=== PATIENT | male | born 1940 | race Hispanic/Latino ===

== ENCOUNTER 2019-04-04 06:56 | Inpatient (IN) | payer MEDICARE ==
[2019-04-04 07:42] LABS: Basophils # (Auto) 0.1 K/mm3 (0.0-0.1); Basophils % (Auto) 1.3 % (0.0-1.8); Eosinophils # (Auto) 0.3 K/mm3 (0.0-0.4); Eosinophils % (Auto) 2.7 % (0.0-4.3); Hematocrit 40.6 % (35.5-45.6); Hemoglobin 13.7 gm/dl (11.8-15.2); Lymphocytes # (Auto) 1.8 K/mm3 (1.2-5.4); Lymphocytes % (Auto) 16.7 % (13.4-35.0); Mean Corpuscular HGB Conc 34 % (32-34); Mean Corpuscular Volume 93 fl (84-94); Monocytes # (Auto) 0.8 K/mm3 (0.0-0.8); Monocytes % (Auto) 7.3 % (0.0-7.3); Platelet Count 176 K/mm3 (140-440); Red Blood Count 4.37 M/mm3 (3.65-5.03); Red Cell Distribution Width 14.2 % (13.2-15.2)
[2019-04-04 08:01] LABS: BUN/Creatinine Ratio 14; Blood Urea Nitrogen 11 mg/dL (9-20); Calcium 9.5 mg/dL (8.4-10.2); Hemolysis Index 10
[2019-04-04 08:15] LABS: INR 0.96 (0.87-1.13)
--- NOTE | 2019-04-04 09:35 | Vascular Lab Report ---
DUPLEX DOPPLER LOWER EXTREMITY VEINS, BILATERAL INDICATION: Left leg swelling and pain. TECHNIQUE: Duplex doppler imaging was performed through the veins of both lower extremities using ve nous compression and other maneuvers. COMPARISON: No relevant prior imaging study available. FINDINGS: Right Common femoral vein: Positive. Right Superficial femoral vein: Positive. Right Popliteal vein: Negative. Right Calf veins: Negative. Left Common femoral vein: Positive. Left Superficial femoral vein: Positive. Left Popliteal vein: Positive. Left Calf veins: Positive. Additional findings: None.. IMPRESSION: Positive for DVT throughout the left lower extremity. Focal DVT is also identified in the right comm on femoral vein/superficial femoral vein junction. Signer Name: Taiwo Nielsen Jr, MD Signed: 04/04/2019 9:31 AM Workstation Name: [id number]
--- NOTE | 2019-04-04 09:43 | Emergency Department Report ---
HPI - General Chief Complaint: Extremity Problem,Nontraumatic Time Seen by Provider: 04/04/19 09:17 - HPI HPI: This 79-year-old male was scheduled to have some procedures today by his urologist, Dr. Almazan, for history of kidney stones. However, while in the preop area, the patient and his mentioned that he has developed some left leg swelling, redness and some pain in the groin. The procedure was postponed and the patient was sent to the emergency department. Given this history, a bilateral lower extremity venous Doppler ultrasound was ordered and a preliminary report has come back showing bilateral acute DVT. There is one in the right common femoral and saphenofemoral junction. There is also a large left lower extremity DVT from the external iliac down to the posterior tibial and peroneal veins. The patient has a past medical history of vascular dementia, diabetes, GERD, coronary artery disease with previous [place] and CABG, hypertension. ED Past Medical Hx - Past Medical History Previous Medical History?: Yes Hx Hypertension: Yes (X 4 YRS) Hx Heart Attack/AMI: Yes (2016) Hx Congestive Heart Failure: No Hx Diabetes: Yes Hx GERD: Yes Hx Headaches / Migraines: Yes Hx Kidney Stones: Yes (PAIN) Hx Dementia: Yes (VASCULAR DEMENTIA/ POOR MEMORY) Hx HIV: No - Surgical History Past Surgical History?: Yes Hx Coronary Stent: No Hx Open Heart Surgery: Yes (07/2016 TRIPLE BYPASS) - Social History Smoking Status: Current Every Day Smoker Substance Use Type: None - Medications Home Medications: Home Medications Medication Instructions Recorded Confirmed Last Taken Type Alpha Lipoic Acid 200 mg PO DAILY 03/11/19 04/04/19 04/03/19 09:00 History Aspirin 81 mg PO DAILY 03/11/19 04/04/19 03/21/19 09:00 History AtorvaSTATin [Lipitor] 20 mg PO QHS 03/11/19 04/04/19 04/02/19 20:00 History Dutasteride 25 mg PO DAILY 03/11/19 04/04/19 04/02/19 09:00 History Dutasteride [Avodart] 0.5 mg PO DAILY 03/11/19 04/04/19 04/03/19 09:00 History Ginkgo Biloba 60 mg PO BID 03/11/19 04/04/19 03/11/19 09:00 History Meclizine 1 tab PO PRN 03/11/19 04/01/19 Unknown History Memantine [Namenda] 10 mg PO BID 03/11/19 04/04/19 04/02/19 18:00 History Metoprolol Tartrate 12.5 mg PO BID 03/11/19 04/04/19 04/03/19 18:00 History Pepcid 10 mg PO BID 03/11/19 04/04/19 04/03/19 18:00 History Vitamin E 400 units PO DAILY 03/11/19 04/04/19 04/02/19 09:00 History Zoloft 100 mg PO DAILY 03/11/19 04/04/19 04/02/19 09:00 History metFORMIN 500 mg PO BID 03/11/19 04/04/19 04/03/19 18:00 History ED Review of Systems ROS: Stated complaint: LT LEG SWOLLEN AND RED Other details as noted in HPI Comment: All other systems reviewed and negative Constitutional: denies: chills, fever Eyes: denies: eye pain, vision change ENT: denies: ear pain, throat pain Respiratory: denies: cough, shortness of breath Cardiovascular: edema. denies: chest pain, palpitations Gastrointestinal: denies: abdominal pain, vomiting Genitourinary: denies: dysuria, discharge Musculoskeletal: myalgia. denies: back pain Skin: change in color. denies: rash Neurological: denies: numbness, paresthesias Physical Exam - Physical Exam Vital Signs: Vital Signs 04/04/19 07:09 Temperature 98.3 F Pulse Rate 89 Respiratory 16 Rate Blood Pressure 113/73 O2 Sat by Pulse 96 Oximetry Physical Exam: GENERAL: The patient is well-developed well-nourished. HENT: Normocephalic. Atraumatic. Patient has moist mucous membranes. EYES: Extraocular motions are intact. NECK: Supple. Trachea is midline. CHEST/LUNGS: Clear to auscultation. There is no respiratory distress noted. HEART/CARDIOVASCULAR: Regular. There is no tachycardia. There is no murmur. ABDOMEN: Abdomen is soft, nontender. Patient has normal bowel sounds. There is no abdominal distention. SKIN: There is nonpitting swelling of the left lower extremity with some mild erythema. No warmth or fluctuance. No obvious rash or lesions. NEURO: The patient is awake, alert, and cooperative. The patient has no focal neurologic deficits. Normal speech. MUSCULOSKELETAL: There is some mild tenderness to palpation along the left lower extremity. ED Course Vital Signs 04/04/19 07:09 Temperature 98.3 F Pulse Rate 89 Respiratory 16 Rate Blood Pressure 113/73 O2 Sat by Pulse 96 Oximetry - Consultations Consultation #1: The patient was seen in the emergency department by the vascular physician information tech, Dr. Amira Collier is arranging for a stat arterial Doppler to be done. He will most likely take the patient in the next hour or so for a EKOS catheter placement. The patient should be admitted to the hospitalist service. 04/04/19 10:12 Consultation #2: 04/04/19 10:31 Spoke with the admitting hospitalist, Dr Nation, who has accepted the patient for admission. ED Medical Decision Making - Lab Data Result diagrams: 04/04/19 07:30 04/04/19 07:30 - Radiology Data Radiology results: report reviewed DUPLEX DOPPLER LOWER EXTREMITY ARTERIAL, BILATERAL INDICATION: nonpalpable pedal pulses, occlusive LLE DVT. TECHNIQUE: Arterial duplex examination of both lower extremities performed using B-mode, color flow and spectral Doppler assessment. FINDINGS: RIGHT: Common Femoral Artery: PSV 86 cm/sec. Triphasic waveform. Deep femoral artery: PSV 96 cm/s. Biphasic waveform. Proximal SFA: PSV 74 cm/sec. Triphasic waveform. Mid SFA: PSV 115 cm/sec. Triphasic waveform. Distal SFA: PSV 96 cm/sec. Triphasic waveform. Popliteal artery: PSV 53 cm/sec. Triphasic waveform. Posterior tibial artery: PSV 42 cm/sec. Biphasic waveform. Anterior tibial artery: PSV 34 cm/s. Biphasic waveform. Dorsalis Pedis Artery: PSV 45 cm/sec. Biphasic waveform. LEFT: Common Femoral Artery: PSV 108 cm/sec. Triphasic waveform. Deep femoral artery: PSV 120 cm/s. Biphasic waveform. Proximal SFA: PSV 113 cm/sec. Triphasic waveform. Mid SFA: PSV 108 cm/sec. Triphasic waveform. Distal SFA: PSV 100 cm/sec. Triphasic waveform. Popliteal artery: PSV 92 cm/sec. Triphasic waveform. Posterior tibial artery: PSV 123 cm/sec. Biphasic waveform. Anterior tibial artery: PSV 58 cm/s. Biphasic waveform. Dorsalis Pedis Artery: PSV 74 cm/sec. Monophasic waveform. Additional findings: Mild diffuse atherosclerotic plaques are noted throughout both lower extremities. IMPRESSION: The bilateral lower extremities appear patent as outlined above. Monophasic flow is noted in the left dorsalis pedis artery. DUPLEX DOPPLER LOWER EXTREMITY VEINS, BILATERAL INDICATION: Left leg swelling and pain. TECHNIQUE: Duplex doppler imaging was performed through the veins of both lower extremities using venous compression and other maneuvers. COMPARISON: No relevant prior imaging study available. FINDINGS: Right Common femoral vein: Positive. Right Superficial femoral vein: Positive. Right Popliteal vein: Negative. Right Calf veins: Negative. Left Common femoral vein: Positive. Left Superficial femoral vein: Positive. Left Popliteal vein: Positive. Left Calf veins: Positive. Additional findings: None.. IMPRESSION: Positive for DVT throughout the left lower extremity. Focal DVT is also identified in the right common femoral vein/superficial femoral vein junction. - Medical Decision Making The patient had a left lower extremity venous Doppler that showed a focal right DVT in the saphenous femoral junction, and an extensive left lower extremity DVT from the external iliac down through the posterior tibial and peroneal veins. Seen by vascular surgery in the emergency department. The patient was placed on IV heparin drip and will have a Ekos catheter placed and IVC filter. Patient will be admitted to the ICU and was accepted for admission by the hospitalist service. - Differential Diagnosis DVT, venous stasis, cellulitis, CHF Critical Care Time: Yes Critical care time in (mins) excluding proc time.: 31 Critical care attestation.: If time is entered above; I have spent that time in minutes in the direct care of this critically ill patient, excluding procedure time. Critical care time was spent on this patient and doing his initial evaluation, multiple re- evaluations, ordering and interpretation of labs and imaging, discussion with vascular surgery and the hospitalist service, discussions with the patient and his family, ordering of IV anticoagulation. Critical Care Time: 31 minutes ED Disposition Clinical Impression: Acute deep vein thrombosis (DVT) of right femoral vein Acute deep vein thrombosis (DVT) of left lower extremity Qualifiers: Affected thrombotic vein of extremity: unspecified vein of extremity Qualified Code(s): I82.402 - Acute embolism and thrombosis of unspecified deep veins of l eft lower extremity Hypertension Qualifiers: Hypertension type: essential hypertension Qualified Code(s): I10 - Essential ( primary) hypertension Disposition: DC-09 OP ADMIT IP TO THIS HOSP Is pt being admited?: Yes Condition: Serious Time of Disposition: 12:04
[2019-04-04] MEDS ORDERED: HEPARIN 10,000 UNITS/10 ML IV ONE (10:07)
[2019-04-04] MEDS ORDERED: SODIUM CHLORIDE FLUSH SYRINGE 10 ML IV PRN (10:42)
[2019-04-04] MEDS ORDERED: PERCOCET 5/325 PO PRN (10:42)
[2019-04-04] MEDS ORDERED: TYLENOL PO PRN (10:42)
[2019-04-04] MEDS ORDERED: ZOFRAN IV PRN (10:42)
--- NOTE | 2019-04-04 10:42 | Consultation ---
History of Present Illness - Reason for Consult Consult date: 04/04/19 left lower extremity DVT - History of Present Illness Patient with a history of kidney stones who presented for lithotripsy today but was noted to have extensive left lower extremity swelling. The patient underwent venous duplex which demonstrates DVT extending from his iliac veins without popliteal veins in the left. Patient with no prior history of DVT. No recent exacerbating factors however, the patient is not very active. Past History Past Medical History: other (kidney stones) Social history: no significant social history Family history: no significant family history Medications and Allergies Allergies Allergy/AdvReac Type Severity Reaction Status Date / Time No Known Allergies Allergy Verified 03/11/19 17:33 Home Medications Medication Instructions Recorded Confirmed Last Taken Type Alpha Lipoic Acid 200 mg PO DAILY 03/11/19 04/04/19 04/03/19 09:00 History Aspirin 81 mg PO DAILY 03/11/19 04/04/19 03/21/19 09:00 History AtorvaSTATin [Lipitor] 20 mg PO QHS 03/11/19 04/04/19 04/02/19 20:00 History Dutasteride 25 mg PO DAILY 03/11/19 04/04/19 04/02/19 09:00 History Dutasteride [Avodart] 0.5 mg PO DAILY 03/11/19 04/04/19 04/03/19 09:00 History Ginkgo Biloba 60 mg PO BID 03/11/19 04/04/19 03/11/19 09:00 History Meclizine 1 tab PO PRN 03/11/19 04/01/19 Unknown History Memantine [Namenda] 10 mg PO BID 03/11/19 04/04/19 04/02/19 18:00 History Metoprolol Tartrate 12.5 mg PO BID 03/11/19 04/04/19 04/03/19 18:00 History Pepcid 10 mg PO BID 03/11/19 04/04/19 04/03/19 18:00 History Vitamin E 400 units PO DAILY 03/11/19 04/04/19 04/02/19 09:00 History Zoloft 100 mg PO DAILY 03/11/19 04/04/19 04/02/19 09:00 History metFORMIN 500 mg PO BID 03/11/19 04/04/19 04/03/19 18:00 History Active Meds: Active Medications Heparin Sodium/Sodium Chloride (Heparin/ 0.45% Nacl-25,000 Unit/500 Ml) 25,000 unit in 500 mls @ 27 mls/hr IV TITR KAMRON; Protocol Last Admin: 04/04/19 10:31 Dose: 1,350 units/hr, 27 mls/hr Documented by: Review of Systems All systems: negative Exam - Constitutional Vitals: Temp Pulse Resp BP Pulse Ox 98.3 F 68 16 166/82 95 04/04/19 07:09 04/04/19 09:53 04/04/19 09:53 04/04/19 09:53 04/04/19 09:53 General appearance: Present: no acute distress - EENT Eyes: Present: EOM intact ENT: hearing intact - Neck Neck: Present: supple, normal ROM - Respiratory Respiratory effort: normal - Cardiovascular Rhythm: regular - Extremities Extremities: abnormal (left leg edema and reddish discoloration from the thigh distally. His left pulses are diminished.) - Abdominal General gastrointestinal: Present: deferred Male genitourinary: Present: deferred - Rectal Rectal Exam: deferred - Psychiatric Psychiatric: appropriate mood/affect, cooperative Results - Labs CBC & Chem 7: 04/04/19 07:30 04/04/19 07:30 Labs: Abnormal lab results 04/04/19 04/04/19 04/04/19 Range/Units 07:30 07:30 07:30 Seg Neutrophils % 72.0 H (40.0-70.0) % APTT 24.0 L (24.2-36.6) Sec. Chloride 95.7 L (98-107) mmol/L Glucose 211 H (75-100) mg/dL - Imaging and Cardiology Venous US: image reviewed Assessment and Plan Patient with a history of an acute left lower extremity DVT. He'll be scheduled for placement of an EKOS catheter and IVC filter placement. Prior to his venous intervention, given the decreased pulses, the patient will undergo an arterial ultrasound as well.
[2019-04-04] MEDS ORDERED: APRESOLINE IV PRN (10:45)
[2019-04-04] MEDS ORDERED: MECLIZINE PO SCH (10:45)
[2019-04-04] MEDS ORDERED: NACL 0.9% 1000 ML 1,000 ML EKOSCLUMEN SCH (11:00)
[2019-04-04] MEDS ORDERED: NACL 0.9% 1000 ML 1,000 ML SHEATH SCH (11:00)
[2019-04-04] MEDS ORDERED: NACL 0.9% 1000 ML 1,000 ML IV SCH (11:00)
[2019-04-04] MEDS ORDERED: HEPARIN/ 0.45% NACL-25,000 UNIT/500 ML 25,000 UNIT/500 ML BAG IV SCH (11:00)
[2019-04-04] MEDS ORDERED: CATHFLO 20 MG in NACL 0.9% 500 ML 500 ML EKOSDLUMEN SCH (11:00)
[2019-04-04] MEDS ORDERED: HEPARIN/ 0.45% NACL-25,000 UNIT/500 ML 25,000 UNIT/500 ML BAG SHEATH SCH (11:00)
[2019-04-04] MEDS ORDERED: HEPARIN 10,000 UNITS/10 ML ONE (11:29)
[2019-04-04] MEDS ORDERED: NACL 0.9% 500 ML 1,500 ML ONE (11:30)
[2019-04-04] MEDS ORDERED: HEPARIN/ 0.45% NACL-25,000 UNIT/500 ML 0 UNIT/0 ML BAG ONE (11:30)
--- NOTE | 2019-04-04 11:45 | Vascular Lab Report ---
DUPLEX DOPPLER LOWER EXTREMITY ARTERIAL, BILATERAL INDICATION: nonpalpable pedal pulses, occlusive LLE DVT. TECHNIQUE: Arterial duplex examination of both lower extremities performed using B-mode, color flow and spectral Doppler assessment. FINDINGS: RIGHT: Common Femoral Artery: PSV 86 cm/sec. Triphasic waveform. Deep femoral artery: PSV 96 cm/s. Biphasic waveform. Proximal SFA: PSV 74 cm/sec. Triphasic waveform. Mid SFA: PSV 115 cm/sec. Triphasic waveform. Distal SFA: PSV 96 cm/sec. Triphasic waveform. Popliteal artery: PSV 53 cm/sec. Triphasic waveform. Posterior tibial artery: PSV 42 cm/sec. Biphasic waveform. Anterior tibial artery: PSV 34 cm/s. Biphasic waveform. Dorsalis Pedis Artery: PSV 45 cm/sec. Biphasic waveform. LEFT: Common Femoral Artery: PSV 108 cm/sec. Triphasic waveform. Deep femoral artery: PSV 120 cm/s. Biphasic waveform. Proximal SFA: PSV 113 cm/sec. Triphasic waveform. Mid SFA: PSV 108 cm/sec. Triphasic waveform. Distal SFA: PSV 100 cm/sec. Triphasic waveform. Popliteal artery: PSV 92 cm/sec. Triphasic waveform. Posterior tibial artery: PSV 123 cm/sec. Biphasic waveform. Anterior tibial artery: PSV 58 cm/s. Biphasic waveform. Dorsalis Pedis Artery: PSV 74 cm/sec. Monophasic waveform. Additional findings: Mild diffuse atherosclerotic plaques are noted throughout both lower extremities . IMPRESSION: The bilateral lower extremities appear patent as outlined above. Monophasic flow is noted in the left dorsalis pedis artery. Doppler Waveform: * Triphasic is normal. * Biphasic is abnormal if clear transition from triphasic signal along vascular tree. * Monophasic is abnormal. Signer Name: Taiwo Nielsen Jr, MD Signed: 04/04/2019 11:41 AM Workstation Name: [id number]
[2019-04-04] MEDS ORDERED: CATHFLO ONE (11:50)
[2019-04-04] MEDS ORDERED: WATER FOR INJ Sterile (PF) 10 ML ONE (11:50)
[2019-04-04] MEDS: VERSED ONE ×2 (11:56→12:50)
[2019-04-04] MEDS: SUBLIMAZE ONE ×2 (11:56→12:50)
[2019-04-04] MEDS ORDERED: HEPARIN/NS 5000 UNIT/500ML(CATH LAB) 500 ML IR ONE ×2 (11:57→12:03)
[2019-04-04] MEDS: XYLOCAINE 2% INFILTRATI ONE ×2 (11:57→12:49)
--- NOTE | 2019-04-04 11:58 | History and Physical Report ---
History of Present Illness Chief complaint: left LE swelling History of present illness: 79 year old man who was scheduled to have some procedure by his urologist, dr. Almzaan for history of kidney stones. But while he was in the preoperative area his had mentioned that he had developed some leg swelling in his left side. he had extensive edema involving his whole left leg and groin. He was in fountain of an acute DVT for which he was then sent to the ER. Past medical history Hypertension, CAD status post-mi, diabetes, GERD, MIGRAINE HEADACHES, VASCULAR DEMENTIA SURGICAL HISTORY CABG SOCIAL HISTORY CURRENT EVERYDAY SMOKER Past History Past Medical History: other (kidney stones) Social history: no significant social history Family history: no significant family history Medications and Allergies Allergies Allergy/AdvReac Type Severity Reaction Status Date / Time No Known Allergies Allergy Verified 03/11/19 17:33 Home Medications Medication Instructions Recorded Confirmed Last Taken Type Alpha Lipoic Acid 200 mg PO DAILY 03/11/19 04/05/19 04/03/19 09:00 History Aspirin 81 mg PO DAILY 03/11/19 04/05/19 04/03/19 History AtorvaSTATin [Lipitor] 20 mg PO QHS 03/11/19 04/05/19 04/03/19 History Dutasteride [Avodart] 0.5 mg PO DAILY 03/11/19 04/05/19 04/03/19 09:00 History Ginkgo Biloba 60 mg PO BID 03/11/19 04/05/19 04/03/19 History Meclizine 1 tab PO PRN 03/11/19 04/05/19 04/03/19 History Memantine [Namenda] 10 mg PO BID 03/11/19 04/05/19 04/03/19 History Metoprolol Tartrate 12.5 mg PO BID 03/11/19 04/05/19 04/03/19 18:00 History Pepcid 10 mg PO BID 03/11/19 04/05/19 04/03/19 18:00 History Vitamin E 400 units PO DAILY 03/11/19 04/05/19 04/03/19 History Zoloft 100 mg PO DAILY 03/11/19 04/05/19 04/03/19 History metFORMIN 500 mg PO BID 03/11/19 04/05/19 04/03/19 18:00 History Apixaban [Eliquis] 5 mg PO BID 30 Days tablet 04/07/19 Unknown Rx Nicotine [Habitrol] 14 mg TD QDAY #30 patch 04/07/19 Unknown Rx oxyCODONE /ACETAMINOPHEN [Percocet 1 tab PO Q6H PRN #20 tablet 04/07/19 Unknown Rx 5/325 mg] Active Meds: Active Medications Acetaminophen (Tylenol) 650 mg PO Q4H PRN PRN Reason: Pain MILD(1-3)/Fever >100.5/FERRO Aspirin (Baby Aspirin) 81 mg PO QDAY KAMRON Atorvastatin Calcium (Lipitor) 20 mg PO QHS KAMRON Famotidine (Pepcid) 10 mg PO BID KAMRON Hydralazine HCl (Apresoline) 10 mg IV Q4H PRN PRN Reason: BP >160/100 Heparin Sodium/Sodium Chloride (Heparin/ 0.45% Nacl-25,000 Unit/500 Ml) 25,000 unit in 500 mls @ 27 mls/hr IV TITR KAMRON; Protocol Last Admin: 04/04/19 10:31 Dose: 1,350 units/hr, 27 mls/hr Documented by: Alteplase, Recombinant 20 mg/ (Sodium Chloride) 500 mls @ 25 mls/hr EKOSDLUMEN DIRECT KAMRON Heparin Sodium/Sodium Chloride (Heparin/ 0.45% Nacl-25,000 Unit/500 Ml) 25,000 unit in 500 mls @ 10 mls/hr SHEATH DIRECT KAMRON; Protocol Sodium Chloride (Nacl 0.9% 1000 Ml) 1,000 mls @ 30 mls/hr IV DIRECT KAMRON Sodium Chloride (Nacl 0.9% 1000 Ml) 1,000 mls @ 30 mls/hr SHEATH DIRECT KAMRON Sodium Chloride (Nacl 0.9% 1000 Ml) 1,000 mls @ 35 mls/hr EKOSCLUMEN DIRECT KAMRON Memantine (Namenda) 10 mg PO BID KAMRON Metformin HCl (Glucophage) 500 mg PO BIDDIAB COUNTS INCLUDE 234 BEDS AT THE [facility] Metoprolol Tartrate (Lopressor) 12.5 mg PO BID COUNTS INCLUDE 234 BEDS AT THE [facility] Miscellaneous Medication (Alpha Lipoic Acid) 200 mg PO DAILY COUNTS INCLUDE 234 BEDS AT THE [facility] Miscellaneous Medication (Dutasteride [Avodart]) 0.5 mg PO DAILY COUNTS INCLUDE 234 BEDS AT THE [facility] Miscellaneous Medication (Meclizine) 1 tab PO PRN KAMRON Morphine Sulfate (Morphine) 2 mg IV Q4H PRN PRN Reason: Pain, Moderate (4-6) Ondansetron HCl (Zofran) 4 mg IV Q8H PRN PRN Reason: Nausea And Vomiting Oxycodone/Acetaminophen (Percocet 5/325) 1 tab PO Q6H PRN PRN Reason: Pain, Moderate (4-6) Sertraline HCl (Zoloft) 100 mg PO DAILY KAMRON Sodium Chloride (Sodium Chloride Flush Syringe 10 Ml) 10 ml IV BID KAMRON Sodium Chloride (Sodium Chloride Flush Syringe 10 Ml) 10 ml IV PRN PRN PRN Reason: LINE FLUSH Vitamin E (Vitamin E Cap) 400 unit PO QDAY KAMRON Review of Systems ROS unobtainable: due to mental status Exam - Constitutional Vitals: Temp Pulse Resp BP Pulse Ox 98.3 F 68 16 166/82 95 04/04/19 07:09 04/04/19 09:53 04/04/19 09:53 04/04/19 09:53 04/04/19 09:53 General appearance: Present: no acute distress, well-nourished - EENT Eyes: Present: PERRL ENT: hearing intact, clear oral mucosa - Neck Neck: Present: supple, normal ROM - Respiratory Respiratory effort: normal Respiratory: bilateral: CTA - Cardiovascular Heart Sounds: Present: S1 & S2. Absent: rub, click - Extremities Extremities: pulses symmetrical Extremity abnormal: edema (LLE) Peripheral Pulses: within normal limits - Abdominal General gastrointestinal: Present: soft, non-tender, non-distended, normal bowel sounds Male genitourinary: Present: normal - Integumentary Integumentary: Present: clear, warm, dry - Musculoskeletal Musculoskeletal: gait normal, strength equal bilaterally - Psychiatric Psychiatric: appropriate mood/affect, intact judgment & insight - Neurologic Neurologic: CNII-XII intact, moves all extremities Results - Labs CBC & Chem 7: 04/07/19 05:38 04/07/19 05:38 Labs: Laboratory Last Values WBC 10.6 K/mm3 (4.5-11.0) 04/04/19 07:30 RBC 4.37 M/mm3 (3.65-5.03) 04/04/19 07:30 Hgb 13.7 gm/dl (11.8-15.2) 04/04/19 07:30 Hct 40.6 % (35.5-45.6) 04/04/19 07:30 MCV 93 fl (84-94) 04/04/19 07:30 MCH 31 pg (28-32) 04/04/19 07:30 MCHC 34 % (32-34) 04/04/19 07:30 RDW 14.2 % (13.2-15.2) 04/04/19 07:30 Plt Count 176 K/mm3 (140-440) 04/04/19 07:30 Lymph % (Auto) 16.7 % (13.4-35.0) 04/04/19 07:30 [place] % (Auto) 7.3 % (0.0-7.3) 04/04/19 07:30 Eos % (Auto) 2.7 % (0.0-4.3) 04/04/19 07:30 Baso % (Auto) 1.3 % (0.0-1.8) 04/04/19 07:30 Lymph # 1.8 K/mm3 (1.2-5.4) 04/04/19 07:30 [place] # 0.8 K/mm3 (0.0-0.8) 04/04/19 07:30 Eos # 0.3 K/mm3 (0.0-0.4) 04/04/19 07:30 Baso # 0.1 K/mm3 (0.0-0.1) 04/04/19 07:30 Seg Neutrophils % 72.0 % (40.0-70.0) H 04/04/19 07:30 Seg Neutrophils # 7.6 K/mm3 (1.8-7.7) 04/04/19 07:30 PT 12.5 Sec. (12.2-14.9) 04/04/19 07:30 INR 0.96 (0.87-1.13) 04/04/19 07:30 APTT 24.0 Sec. (24.2-36.6) L 04/04/19 07:30 Sodium 137 mmol/L (137-145) 04/04/19 07:30 Potassium 4.6 mmol/L (3.6-5.0) 04/04/19 07:30 Chloride 95.7 mmol/L (98-107) L 04/04/19 07:30 Carbon Dioxide 28 mmol/L (22-30) 04/04/19 07:30 18 mmol/L 04/04/19 07:30 BUN 11 mg/dL (9-20) 04/04/19 07:30 0.8 mg/dL (0.8-1.5) 04/04/19 07:30 Estimated GFR > 60 ml/min 04/04/19 07:30 14 % 04/04/19 07:30 Glucose 211 mg/dL (75-100) H 04/04/19 07:30 Calcium 9.5 mg/dL (8.4-10.2) 04/04/19 07:30 Assessment and Plan Assessment and plan: 79 year old man with kidney stones who was planned for a urological procedure who was then found to have extensive left lower extremity DVT. The patient's procedure was aborted and then he was admitted to the hospital. Extensive left lower extremity DVT Placement of thrombolytic catheter was done on IVC filter was placed, vascular surgery input appreciated Continue Heparin drip Vascular dementia with acute metabolic encephalopathy Supportive care, Ativan as needed, sitter ordered in the room as patient was pulling his lines and was confused Diabetes SSI GERD pepcid CAD Continue cardiac medications Current everyday smoker Nicotine patch, smoking cessation counseling performed for 11 minutes CCT 33 mins
--- NOTE | 2019-04-04 12:25 | Operative Report ---
Operative Report Operative Report: Exam: Ultrasound and fluoroscopic guided placement of IVC filter, ultrasound and fluoroscopic guided placement of thrombolytic catheter placement Clinical indication: Patient with left lower extremity DVT extending from his left external iliac vein to the tibial veins. Date: 04/04/2019 Procedure: Following an excellent pronation of the risks, benefits and alternatives; written informed consent was obtained. The patient was brought to the radiographic suite and placed in supine position on the examination table initially. IVC filter placement: Initial ultrasound evaluation of the patient's right neck demonstrated a patent although diminutive right internal jugular vein. The patient's right neck was prepped and draped in the usual sterile fashion. 1% lidocaine was used for anesthesia. Under ultrasound guidance, a 7 centimeter 18-gauge needle was advanced into the right internal jugular vein. A 0.018 guidewire was advanced centrally under fluoroscopy. The needle was removed and a marker sheath place. The 0.018 guidewire was exchanged for a 0.035 guidewire and the micro-sheath exchanged for a 5 [place] vascular sheath. A 5 [place] vertebral catheter was then advanced over the guidewire and together the guidewire and catheter advanced into the IVC. The guidewire was advanced down the right and left common iliac veins and angiography was performed to demonstrate a patent system. The guidewire was reinserted through the vertebral catheter and the vertebral catheter exchanged for an Omni first catheter was was advanced into the distal IVC. The guidewire was removed. Contrast was injected and the level of the renal veins identified. No intraluminal thrombus in the IVC is identified. Appropriate size criteria is present. Following dilation, the IVC filter introducer sheath and trocar were advanced over the guidewire. A [place] IVC filter was advanced through the sheath and deployed to position the tip of the IVC filter at the middle aspect of the L2 tubal body. Postplacement angiography was performed which demonstrated appropriate positioning with no significant tilt. The sheath was removed and hemostasis achieved in the right neck using manual compression. A sterile dressing was applied. EKOS catheter placement: The patient was placed in prone position. The patient's left popliteal fossa was prepped and draped in usual sterile fashion. Initial ultrasound evaluation of his leg demonstrated a patent left popliteal vein. Percent lidocaine was use d for anesthesia. Under ultrasound guidance, the left popliteal vein cannulated with a 7 cm 18-gauge needle. A 0.035 guidewire was advanced centrally. The needle was removed and a [address] [place] 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 The collateral was chosen and cannulated with a 0.035 guidewire. Vertebral catheter was advanced over the guidewire and manipulated to the left common femoral vein. Contrast was injected which demonstrates thrombus extending from the external iliac vein to the common femoral vein. The catheter guidewire were manipulated into the IVC. Contrast was injected to document appropriate positioning. The guidewire was reinserted. The vertebral catheter was removed. The thrombolytics catheter was then advanced over the guidewire into position the tip of the thrombolytics catheter in the common iliac vein on the left in the distal aspect of it within the femoral vein. A 50 cm and fusion length 135 cm total length catheter was used. The guidewire was removed and the infusion wire then inserted through the thrombolytics catheter. Images were saved to document appropriate positioning. The sheath was securely fastened of skin surface using 0 silk suture. The catheter was then securely fastened of the sheath using 0 silk suture. A sterile dressing was applied. The catheter was primed with 4 mg of TPA and the sheath primed with 4000 units of heparin. The patient tolerated the procedures well. There were no immediate post procedure complications. Conscious sedation was performed under the guidance of radiologic nursing. Continuous cardiopulmonary monitoring was utilized. Impression: 1) Ultrasound guided placement of IVC filter via the right internal jugular vein approach. 2) Ultrasound and fluoroscopic guided placement of EKOS thrombolytics catheter via the left popliteal vein to extend from the distal left femoral vein to the left common iliac vein.
[2019-04-04] MEDS ORDERED: NACL 0.9% 1000 ML 1,000 ML ONE (12:58)
[2019-04-04 14:15] LABS: Basophils # (Auto) 0.1 K/mm3 (0.0-0.1); Eosinophils # (Auto) 0.3 K/mm3 (0.0-0.4); Eosinophils % (Auto) 3.2 % (0.0-4.3); Hematocrit 39.7 % (35.5-45.6); Hemoglobin 13.2 gm/dl (11.8-15.2); Lymphocytes # (Auto) 2.5 K/mm3 (1.2-5.4); Lymphocytes % (Auto) 26.7 % (13.4-35.0); Mean Corpuscular HGB Conc 33 % (32-34); Mean Corpuscular Volume 93 fl (84-94); Monocytes # (Auto) 0.7 K/mm3 (0.0-0.8); Monocytes % (Auto) 7.9 % (0.0-7.3); Platelet Count 180 K/mm3 (140-440); Red Blood Count 4.27 M/mm3 (3.65-5.03)
[2019-04-04 14:25] LABS: BUN/Creatinine Ratio 14; Blood Urea Nitrogen 10 mg/dL (9-20); Calcium 9.2 mg/dL (8.4-10.2); Hemolysis Index 7
[2019-04-04 14:28] LABS: INR 1.05 (0.87-1.13)
[2019-04-04 14:52] LABS: Partial Thromboplastin Time 78.1 Sec. (24.2-36.6)
[2019-04-04] MEDS ORDERED: ANTIVERT PO PRN (15:06)
[2019-04-04] MEDS ORDERED: ATIVAN IV ONE (18:15)
[2019-04-04] MEDS: GLUCOPHAGE PO SCH ×2 (18:22→18:28)
[2019-04-04] MEDS: MORPHINE IV PRN (20:02)
[2019-04-04] MEDS ORDERED: D50W (25GM) Syringe IV PRN (20:59)
[2019-04-04] MEDS ORDERED: NON-FORMULARY (Metformin 500 MG) PO SCH (22:00)
[2019-04-04] MEDS ORDERED: PEPCID PO SCH (22:00)
[2019-04-04] MEDS ORDERED: NON-FORMULARY (Metoprolol Tartrate 12.5 MG) PO SCH (22:00)
[2019-04-04] MEDS: LOPRESSOR PO SCH (22:07)
[2019-04-04] MEDS: NAMENDA PO SCH (22:07)
[2019-04-04] MEDS: PEPCID PO SCH (22:07)
[2019-04-04] MEDS: HABITROL TD SCH (22:08)
[2019-04-04] MEDS: SODIUM CHLORIDE FLUSH SYRINGE 10 ML IV SCH (22:08)
[2019-04-04] MEDS: HumaLOG SUB-Q SCH (22:10)
[2019-04-05] MEDS: MORPHINE IV PRN ×2 (02:33→10:30)
[2019-04-05 04:12] LABS: Basophils # (Auto) 0.1 K/mm3 (0.0-0.1); Basophils % (Auto) 1.1 % (0.0-1.8); Eosinophils # (Auto) 0.2 K/mm3 (0.0-0.4); Eosinophils % (Auto) 2.6 % (0.0-4.3); Hematocrit 37.7 % (35.5-45.6); Hemoglobin 12.7 gm/dl (11.8-15.2); Lymphocytes # (Auto) 1.7 K/mm3 (1.2-5.4); Lymphocytes % (Auto) 19.5 % (13.4-35.0); Mean Corpuscular HGB Conc 34 % (32-34); Mean Corpuscular Volume 92 fl (84-94); Monocytes # (Auto) 0.8 K/mm3 (0.0-0.8); Monocytes % (Auto) 9.3 % (0.0-7.3); Platelet Count 155 K/mm3 (140-440); Red Blood Count 4.08 M/mm3 (3.65-5.03); Red Cell Distribution Width 14.1 % (13.2-15.2)
[2019-04-05 04:39] LABS: Fibrinogen 60 mg/dl (211-480)
[2019-04-05 04:45] LABS: BUN/Creatinine Ratio 14; Blood Urea Nitrogen 10 mg/dL (9-20); Calcium 8.8 mg/dL (8.4-10.2); Hemolysis Index 3
--- NOTE | 2019-04-05 05:11 | Event Note ---
Date: 04/05/19 Contacted about oozing from right neck and fibrinogen less than 60. Instructed nursing to stop TPA and change to NS through thrombolysis catheter. Ordered 20 units of cryoprecipitate, and ordered pressure to be held at right neck until cryo transfused. Ordered CBC, PTT, PT, fibrinogen to be pulled after cryo infused.
[2019-04-05 05:41] LABS: INR 1.59 (0.87-1.13)
[2019-04-05 05:42] LABS: Partial Thromboplastin Time 45.9 Sec. (24.2-36.6)
[2019-04-05 05:49] LABS: Basophils # (Auto) 0.1 K/mm3 (0.0-0.1); Basophils % (Auto) 1.2 % (0.0-1.8); Eosinophils # (Auto) 0.3 K/mm3 (0.0-0.4); Eosinophils % (Auto) 3.4 % (0.0-4.3); Hematocrit 36.5 % (35.5-45.6); Hemoglobin 12.3 gm/dl (11.8-15.2); Lymphocytes # (Auto) 1.9 K/mm3 (1.2-5.4); Lymphocytes % (Auto) 21.9 % (13.4-35.0); Mean Corpuscular HGB Conc 34 % (32-34); Mean Corpuscular Volume 93 fl (84-94); Monocytes # (Auto) 0.8 K/mm3 (0.0-0.8); Monocytes % (Auto) 9.3 % (0.0-7.3); Platelet Count 146 K/mm3 (140-440); Red Blood Count 3.93 M/mm3 (3.65-5.03); Red Cell Distribution Width 14.2 % (13.2-15.2)
[2019-04-05] MEDS ORDERED: HEPARIN/NS 5000 UNIT/500ML(CATH LAB) 500 ML IR ONE ×2 (08:44→12:55)
[2019-04-05] MEDS ORDERED: NACL 0.9% 500 ML 500 ML ONE ×2 (09:03→12:21)
[2019-04-05] MEDS ORDERED: ALPHA LIPOIC ACID 200 MG PO SCH (10:00)
[2019-04-05] MEDS ORDERED: NON-FORMULARY (Dutasteride [Avodart] 0.5 MG) PO SCH (10:00)
[2019-04-05] MEDS ORDERED: VITAMIN E 400 UNIT PO SCH (10:00)
[2019-04-05] MEDS ORDERED: NON-FORMULARY (Aspirin 81 MG) PO SCH (10:00)
[2019-04-05] MEDS ORDERED: NON-FORMULARY (Zoloft 100 MG) PO SCH (10:00)
[2019-04-05] MEDS: XYLOCAINE 2% INFILTRATI ONE ×2 (10:17→12:35)
[2019-04-05] MEDS: HumaLOG SUB-Q SCH ×4 (10:17→22:15)
[2019-04-05] MEDS: GLUCOPHAGE PO SCH (10:21)
[2019-04-05] MEDS: HABITROL TD SCH (10:29)
[2019-04-05] MEDS: SODIUM CHLORIDE FLUSH SYRINGE 10 ML IV SCH ×2 (10:50→22:15)
[2019-04-05] MEDS: LOPRESSOR PO SCH ×2 (11:02→22:13)
[2019-04-05] MEDS: NAMENDA PO SCH ×2 (11:02→22:14)
[2019-04-05] MEDS: BABY ASPIRIN PO SCH (11:02)
[2019-04-05] MEDS: PEPCID PO SCH ×2 (11:02→22:13)
[2019-04-05] MEDS: VITAMIN E CAP PO SCH (11:03)
[2019-04-05] MEDS: ZOLOFT PO SCH (11:03)
--- NOTE | 2019-04-05 12:17 | Consultation ---
History of Present Illness Consult date: 04/05/19 History of present illness: PULMONARY/CCM CONSULT NOTE (Full dictation # [id number]) Please see dictated notes for full details Past History Past Medical History: other (kidney stones) Social history: no significant social history Family history: no significant family history Medications and Allergies Allergies Allergy/AdvReac Type Severity Reaction Status Date / Time No Known Allergies Allergy Verified 03/11/19 17:33 Home Medications Medication Instructions Recorded Confirmed Last Taken Type Alpha Lipoic Acid 200 mg PO DAILY 03/11/19 04/05/19 04/03/19 09:00 History Aspirin 81 mg PO DAILY 03/11/19 04/05/19 04/03/19 History AtorvaSTATin [Lipitor] 20 mg PO QHS 03/11/19 04/05/19 04/03/19 History Dutasteride 25 mg PO DAILY 03/11/19 04/05/19 04/03/19 History Dutasteride [Avodart] 0.5 mg PO DAILY 03/11/19 04/05/19 04/03/19 09:00 History Ginkgo Biloba 60 mg PO BID 03/11/19 04/05/19 04/03/19 History Meclizine 1 tab PO PRN 03/11/19 04/05/19 04/03/19 History Memantine [Namenda] 10 mg PO BID 03/11/19 04/05/19 04/03/19 History Metoprolol Tartrate 12.5 mg PO BID 03/11/19 04/05/19 04/03/19 18:00 History Pepcid 10 mg PO BID 03/11/19 04/05/19 04/03/19 18:00 History Vitamin E 400 units PO DAILY 03/11/19 04/05/19 04/03/19 History Zoloft 100 mg PO DAILY 03/11/19 04/05/19 04/03/19 History metFORMIN 500 mg PO BID 03/11/19 04/05/19 04/03/19 18:00 History Active Meds: Active Medications Acetaminophen (Tylenol) 650 mg PO Q4H PRN PRN Reason: Pain MILD(1-3)/Fever >100.5/FERRO Aspirin (Baby Aspirin) 81 mg PO QDAY KAMRON Last Admin: 04/05/19 11:02 Dose: Not Given Documented by: Atorvastatin Calcium (Lipitor) 20 mg PO QHS COUNT INCLUDES THE [facility] Last Admin: 04/04/19 22:07 Dose: 20 mg Documented by: Dextrose (D50w (25gm) Syringe) 50 ml IV PRN PRN PRN Reason: Hypoglycemia Famotidine (Pepcid) 10 mg PO BID COUNT INCLUDES THE [facility] Last Admin: 04/05/19 11:02 Dose: Not Given Documented by: Hydralazine HCl (Apresoline) 10 mg IV Q4H PRN PRN Reason: BP >160/100 Heparin Sodium/Sodium Chloride (Heparin/ 0.45% Nacl-25,000 Unit/500 Ml) 25,000 unit in 500 mls @ 10 mls/hr SHEATH DIRECT KAMRON; Protocol Last Admin: 04/04/19 14:00 Dose: 0.5 mls Documented by: Sodium Chloride (Nacl 0.9% 1000 Ml) 1,000 mls @ 30 mls/hr IV DIRECT KAMRON Sodium Chloride (Nacl 0.9% 1000 Ml) 1,000 mls @ 30 mls/hr SHEATH DIRECT KAMRON Last Admin: 04/04/19 14:00 Dose: 5 mls Documented by: Sodium Chloride (Nacl 0.9% 1000 Ml) 1,000 mls @ 35 mls/hr EKOSCLUMEN DIRECT KAMRON Insulin Human Lispro (Humalog) 0 unit SUB-Q ACHS KAMRON; Protocol Last Admin: 04/05/19 10:17 Dose: Not Given Documented by: Lorazepam (Ativan) 1 mg IV Q4H PRN PRN Reason: Agitation Meclizine HCl (Antivert) 12.5 mg PO Q12H PRN PRN Reason: Vertigo Memantine (Namenda) 10 mg PO BID COUNT INCLUDES THE [facility] Last Admin: 04/05/19 11:02 Dose: Not Given Documented by: Metformin HCl (Glucophage) 500 mg PO BIDDIAB COUNT INCLUDES THE [facility] Metoprolol Tartrate (Lopressor) 12.5 mg PO BID COUNT INCLUDES THE [facility] Last Admin: 04/05/19 11:02 Dose: Not Given Documented by: Miscellaneous Medication (Dutasteride [Avodart]) 0.5 mg PO DAILY COUNT INCLUDES THE [facility] Morphine Sulfate (Morphine) 2 mg IV Q4H PRN PRN Reason: Pain, Moderate (4-6) Last Admin: 04/05/19 10:30 Dose: 2 mg Documented by: Nicotine (Habitrol) 14 mg TD QDAY COUNT INCLUDES THE [facility] Last Admin: 04/05/19 10:29 Dose: 14 mg Documented by: Ondansetron HCl (Zofran) 4 mg IV Q8H PRN PRN Reason: Nausea And Vomiting Oxycodone/Acetaminophen (Percocet 5/325) 1 tab PO Q6H PRN PRN Reason: Pain, Moderate (4-6) Sertraline HCl (Zoloft) 100 mg PO DAILY COUNT INCLUDES THE [facility] Last Admin: 04/05/19 11:03 Dose: Not Given Documented by: Sodium Chloride (Sodium Chloride Flush Syringe 10 Ml) 10 ml IV BID COUNT INCLUDES THE [facility] Last Admin: 04/05/19 10:50 Dose: 10 ml Documented by: Sodium Chloride (Sodium Chloride Flush Syringe 10 Ml) 10 ml IV PRN PRN PRN Reason: LINE FLUSH Vitamin E (Vitamin E Cap) 400 unit PO QDAY COUNT INCLUDES THE [facility] Last Admin: 04/05/19 11:03 Dose: Not Given Documented by: Physical Examination Vital signs: Vital Signs Temp Pulse Resp BP Pulse Ox 98.3 F 89 16 113/73 96 04/04/19 07:09 04/04/19 07:09 04/04/19 07:09 04/04/19 07:09 04/04/19 07:09 Results - Laboratory Findings CBC and BMP: 04/06/19 04:27 04/06/19 04:27 PT/INR, D-dimer PT 18.6 Sec. (12.2-14.9) H 04/05/19 05:20 INR 1.59 (0.87-1.13) H 04/05/19 05:20 Abnormal lab findings: Abnormal Labs 04/04/19 04/04/19 04/04/19 07:30 07:30 07:30 [place] % (Auto) Seg Neutrophils % 72.0 H PT INR APTT 24.0 L Fibrinogen Heparin Anti-Xa Level Potassium Chloride 95.7 L Creatinine Glucose 211 H POC Glucose 04/04/19 04/04/19 04/04/19 13:50 13:50 13:50 [place] % (Auto) 7.9 H Seg Neutrophils % PT INR APTT 78.1 H* Fibrinogen Heparin Anti-Xa Level Potassium Chloride Creatinine 0.7 L Glucose 159 H POC Glucose 04/04/19 04/05/19 04/05/19 22:08 03:53 03:53 [place] % (Auto) 9.3 H Seg Neutrophils % PT INR APTT Fibrinogen Heparin Anti-Xa Level Potassium 3.5 L Chloride Creatinine 0.7 L Glucose 167 H POC Glucose 212 H 04/05/19 04/05/19 04/05/19 04:02 05:20 05:39 [place] % (Auto) 9.3 H Seg Neutrophils % PT 18.6 H INR 1.59 H APTT 45.9 H Fibrinogen 60 L* 61 L* Heparin Anti-Xa Level < 0.10 L Potassium Chloride Creatinine Glucose POC Glucose
[2019-04-05] MEDS ORDERED: ANCEF/STERILE WATER 2 GM/20 ML 2 GM/20 ML SYRINGE IV ONE (12:21)
[2019-04-05] MEDS: VERSED ONE ×2 (12:35→12:50)
[2019-04-05] MEDS: SUBLIMAZE ONE ×5 (12:35→13:47)
[2019-04-05] MEDS: HEPARIN 10,000 UNITS/10 ML ONE ×5 (12:38→15:30)
[2019-04-05] MEDS ORDERED: VERSED ONE ×2 (13:07→13:40)
[2019-04-05] MEDS ORDERED: DIPRIVAN 10 MG/ML IV ONE ×2 (13:39)
[2019-04-05] MEDS ORDERED: DILAUDID ONE (13:40)
[2019-04-05] MEDS ORDERED: HEPARIN/NS 5000 UNIT/500ML(CATH LAB) 1,000 ML IR ONE (13:46)
--- NOTE | 2019-04-05 14:05 | Anesthesia Consultation ---
Anesthesia Consult and Med Hx Date of service: 04/05/19 - Airway Intubation Access Assessment: Possibly Difficult (unable to perform) - Pulmonary Exam CTA: Yes - Cardiac Exam Cardiac Exam: RRR - Pre-Operative Health Status ASA Pre-Surgery Classification: ASA3, Emergency Proposed Anesthetic Plan: MAC - Pulmonary Hx Smoking: Yes (1 PPD) Hx Respiratory Symptoms: Yes (chronic cough) Hx Sleep Apnea: No (KIM PRE SCREEN HIGH RISK.) - Cardiovascular System Hx Hypertension: Yes Hx Coronary Artery Disease: Yes (s/p 3 vessel CABG 2016) Hx Heart Attack/AMI: Yes (2016) Hx Cardia Arrhythmia: No - Central Nervous System CVA: No Hx Psychiatric Problems: Yes (vascular dementia) - Gastrointestinal Hx Gastroesophageal Reflux Disease: Yes - Endocrine Hx Renal Disease: No Hx Liver Disease: No Hx Insulin Dependent Diabetes: No Hx Non-Insulin Dependent Diabetes: No Hx Thyroid Disease: No - Hematic Hx Anemia: Yes - Other Systems Hx Cancer: No - Additional Comments Anesthesia Medical History Comments: Called to oven laborer for failed RN administerred conscious sedation for patient undergoing vascular procedure. Anesthesia services requested for assistance with sedation. Per RN, patient is appropriately NPO for procedure. Attempted to call /NOK multiple times for consent however unable to reach anyone. Will proceed with MAC anesthetic for urgent revascularization procedure.
[2019-04-05] MEDS ORDERED: PROVENTIL IH PRN (15:10)
--- NOTE | 2019-04-05 15:12 | Operative Report ---
Operative Report Operative Report: EXAM: 1. Removal of the venous thrombolytic catheter over a wire. 2. Selection of the IVC 3. Venography of the IVC and left lower extremity 4. Mechanical thrombectomy of the left proximal superficial femoral vein, left common femoral vein, and left external iliac vein and common iliac vein with the 8 Fr angiojet 5. Event Planning Intern mechanical thrombectomy (7 Fr) and Trerotola mechanical thrombectomy (6 Fr) of the left common femoral vein and proximal superficial femoral vein 6. Aspiration thrombectomy of the left common femoral vein and proximal superficial femoral vein with a 8 Fr MPA guide 7. Angioplasty of the left proximal superficial femoral vein, common femoral vein, left external iliac vein and left common iliac vein with a 12 mm x 60 mm angioplasty balloon 8. Angioplasty of the left superficial femoral vein and popliteal vein with a 7 mm x 200 mm angioplasty balloon 9. Angioplasty of the left common femoral vein and external iliac vein with a 14 mm x 40 mm angioplasty balloon 10. 8 Fr Angiojet mechanical thrombectomy of the IVC 11. Intravascular ultrasound of the IVC, left common iliac vein, left external iliac vein, left common femoral vein and left proximal superficial femoral vein DATE: 04/05/19 STATISTICAL FINANCIAL ANALYST: SONAL SHERMAN MD INDICATION: Symptomatic iliofemoral deep venous thrombosis MEDICATIONS: Please see nursing report for full details. CONTRAST: Please see track repair laborer report for full details ANESTHESIA: Patient became combative during the middle of the procedure due to confusion from conscious sedation and anesthesiology was contacted for assistance. Anesthesia provided MAC. PROCEDURE: Risks, benefits, and alternatives were discussed with the family; written informed consent was obtained. 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 The left common femoral vein demonstrated occlusion and the left external iliac vein was partially occluded. The left common iliac vein was partially occluded. The IVC was selected and digital subtraction angiography demonstrated patency of the IVC. Multiple thrombectomy devices including an 8 [place] AngioJet was used to perform thrombectomy of the left common iliac vein, external iliac vein, common femoral vein, and superficial femoral vein and a mold cleaner and Trerotola device were then used to perform thrombectomy of the left common femoral vein and proximal superficial femoral vein with 8 [place] guide catheter aspiration thrombectomy of the left proximal superficial femoral vein and common femoral vein. Due to the chronic nature of the thrombus in the left common femoral vein, all these devices were required in order to achieve clot resolution. Angioplasty was performed of the left common iliac vein, external iliac vein, common femoral vein, and proximal superficial femoral vein with a 12 mm x 60 mm angioplasty balloon. Angioplasty was performed of the left superficial femoral vein and popliteal vein with a 7 mm x 200 mm angioplasty balloon. 14 mm x 40 mm angioplasty balloon was then used to perform angioplasty of the left external iliac vein and common femoral vein. Digital subtraction angiography demonstrated mild residual narrowing of the superficial femoral vein, but there was more moderate irregularity was at the proximal portion of the superficial femoral vein with the mid and more peripheral portions having less significant narrowing. The left common femoral vein was patent. Left external iliac vein and common iliac vein were patent. There was thrombus in the IVC filter. 8 [place] AngioJet was then used to perform mechanical thrombectomy of the IVC filter and IVC. Digital subtraction angiography demonstrated resolution of the IVC thrombus. Intravascular ultrasound was then used to evaluate the IVC, left common iliac vein, left external iliac vein, left common femoral vein, and proximal left superficial femoral vein. The IVC was patent. The left common iliac vein was patent without May Thurner. There was severe compression of the left external iliac vein from the external iliac artery. Left common femoral vein was mildly irregular. The left profunda femoral vein was occluded despite overnight thrombolytics. The left proximal superficial femoral vein had moderate narrowing. Due to the moderate residual narrowing of the proximal superficial femoral vein and the occlusion of the profunda femoral vein and the difficulty with proceeding further with the case due to patient's confusion requiring MAC anesthesia, I decided not to stent the left external iliac vein lesion at this time. At this point, all wires, catheters, and sheaths removed. Pressure was held until hemostasis was achieved. Patient was provided 10 mg of Eliquis. ARELIS hose were applied. FINDINGS: Please see procedure note above. IMPRESSION: 1. Successful thrombolytic catheter removal. 2. Successful thrombectomy of the left lower extremity and IVC. 3. Successful angioplasty of the left common iliac vein, external iliac vein, common femoral vein, and superficial femoral vein. 4. Successful intravascular ultrasound of the IVC, left common iliac vein, left external iliac vein, and left common femoral vein and superficial femoral vein.
--- NOTE | 2019-04-05 15:12 | Post Operative Note ---
Date of procedure: 04/05/19 Pre-op diagnosis: Left ileofemoral DVT Post-op diagnosis: same Procedure: 1. Selection of the IVC 2. Venography of the IVC and left lower extremity 3. Mechanical thrombectomy of the left proximal superficial femoral vein, left common femoral vein, and left external iliac vein and common iliac vein with the 8 Fr angiojet 4. Intervention Manager mechanical thrombectomy (7 Fr) and Trerotola mechanical thrombectomy (6 Fr) of the left common femoral vein and proximal superficial femoral vein 5. Aspiration thrombectomy of the left common femoral vein and proximal superficial femoral vein with a 8 Fr MPA guide 6. Angioplasty of the left proximal superficial femoral vein, common femoral vein, left external iliac vein and left common iliac vein with a 12 mm x 60 mm angioplasty balloon 7. Angioplasty of the left common femoral vein and external iliac vein with a 14 mm x 40 mm angioplasty balloon 8. 8 Fr Angiojet mechanical thrombectomy of the IVC 9. Intravascular ultrasound of the IVC, left common iliac vein, left external iliac vein, left common femoral vein and left proximal superficial femoral vein Estimated blood loss: other (300 mL blood loss (angiojet and aspiration thrombectomy)) Condition: stable Disposition: other ([facility])
--- NOTE | 2019-04-05 15:13 | Anesthesia Day of Surgery ---
Anesthesia Day of Surgery - Day of Surgery Patient Examined: Yes Patient H&P Reviewed: Yes Patient is NPO: Yes
[2019-04-05] MEDS ORDERED: ALUM-MAG HYDROX-SIMETH 200-200-20MG/5ML ONE (15:23)
--- NOTE | 2019-04-05 15:36 | Event Note ---
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 EBL 300 from aspiration thrombectomy and angiojet. Needs IVF to flush urine. Angiojet will cause dark tea colored urine, which is normal, and needs IVF. Starting patient on Eliquis later today (10 mg PO BID). TPA, heparin discontinued. Transfer to [facility]. Can ambulate after [address] scan will be obtained of brain given low fibrinogen, but patient was at baseline prior to initiation of case.
--- NOTE | 2019-04-05 15:46 | Post Anesthesia Evaluation ---
- Post Anesthesia Evaluation Patient Participated: No Airway Patent: Yes Stable Respiratory Function: Yes Nausea/Vomiting: No Temp > 96.8F: Yes Pain Manageable: Yes Adequeate Hydration: Yes Anesthesia Complications: No Block Receding Appropriately: Not Applicable Patient on Ventilator: No Other Comments: Patient drowsy but arousable. Diffuse wheezing improved s/p albuterol neb. SpO2 >94% on 3L NC. Patient will get CT head (hx low fibrinogen today before transfusion) per proceduralist's orders prior to transport to [facility].
--- NOTE | 2019-04-05 15:49 | Progress Note ---
Assessment and Plan Assessment and plan: 79 year old man with kidney stones who was planned for a urological procedure who was then found to have extensive left lower extremity DVT. The patient's procedure was aborted and then he was admitted to the hospital. Extensive left lower extremity DVT Placement of thrombolytic catheter was done on IVC filter was placed, vascular surgery input appreciated Continue Heparin drip, sp IVC filter Vascular dementia with acute metabolic encephalopathy Supportive care, Ativan as needed, sitter ordered in the room as patient was pulling his lines and was confused Diabetes SSI GERD pepcid CAD Continue cardiac medications Current everyday smoker Nicotine patch, smoking cessation counseling performed for 11 minutes CCT 33 mins History Interval history: Patient has been confused, but he is confused at baseline. He has no complaints of chest pain shortness of breath, fever, or vomiting Hospitalist Physical - Physical exam Narrative exam: General.: Appears well, no distress, nontoxic HEENT: Moist mucous membranes, extraocular muscles intact, no lymphadenopathy Neck: supple Cardiac: S1-S2 heard Lungs: clear to auscultation bilaterally Abdomen: soft , nontender, nondistended, bowel sounds positive Extremities: Left lower extremity edema Skin: no rash or lesions Neurologic: no gross focal deficits, Patient is demented and confused Psych: calm, and cooperative - Constitutional Vitals: Temp Pulse Resp BP Pulse Ox 98.6 F 81 18 133/68 100 04/05/19 12:00 04/05/19 15:17 04/05/19 15:17 04/05/19 11:30 04/05/19 11:30 General appearance: Present: no acute distress Results - Labs CBC & Chem 7: 04/07/19 05:38 04/07/19 05:38 Labs: Laboratory Last Values WBC 8.6 K/mm3 (4.5-11.0) 04/05/19 05:39 RBC 3.93 M/mm3 (3.65-5.03) 04/05/19 05:39 Hgb 12.3 gm/dl (11.8-15.2) 04/05/19 05:39 Hct 36.5 % (35.5-45.6) 04/05/19 05:39 MCV 93 fl (84-94) 04/05/19 05:39 MCH 31 pg (28-32) 04/05/19 05:39 MCHC 34 % (32-34) 04/05/19 05:39 RDW 14.2 % (13.2-15.2) 04/05/19 05:39 Plt Count 146 K/mm3 (140-440) 04/05/19 05:39 Lymph % (Auto) 21.9 % (13.4-35.0) 04/05/19 05:39 [place] % (Auto) 9.3 % (0.0-7.3) H 04/05/19 05:39 Eos % (Auto) 3.4 % (0.0-4.3) 04/05/19 05:39 Baso % (Auto) 1.2 % (0.0-1.8) 04/05/19 05:39 Lymph # 1.9 K/mm3 (1.2-5.4) 04/05/19 05:39 [place] # 0.8 K/mm3 (0.0-0.8) 04/05/19 05:39 Eos # 0.3 K/mm3 (0.0-0.4) 04/05/19 05:39 Baso # 0.1 K/mm3 (0.0-0.1) 04/05/19 05:39 Seg Neutrophils % 64.2 % (40.0-70.0) 04/05/19 05:39 Seg Neutrophils # 5.5 K/mm3 (1.8-7.7) 04/05/19 05:39 PT 18.6 Sec. (12.2-14.9) H 04/05/19 05:20 INR 1.59 (0.87-1.13) H 04/05/19 05:20 APTT 45.9 Sec. (24.2-36.6) H 04/05/19 05:20 233 mg/dl (211-480) 04/05/19 11:54 Heparin Anti-Xa Level < 0.10 U.I./ml (0.3-0.7) L 04/05/19 04:02 Sodium 140 mmol/L (137-145) 04/05/19 03:53 Potassium 3.5 mmol/L (3.6-5.0) L 04/05/19 03:53 Chloride 100.2 mmol/L (98-107) 04/05/19 03:53 Carbon Dioxide 27 mmol/L (22-30) 04/05/19 03:53 16 mmol/L 04/05/19 03:53 BUN 10 mg/dL (9-20) 04/05/19 03:53 0.7 mg/dL (0.8-1.5) L 04/05/19 03:53 Estimated GFR > 60 ml/min 04/05/19 03:53 14 % 04/05/19 03:53 Glucose 167 mg/dL (75-100) H 04/05/19 03:53 POC Glucose 212 (70-105) H 04/04/19 22:08 Calcium 8.8 mg/dL (8.4-10.2) 04/05/19 03:53 Blood Type O POSITIVE 04/05/19 05:00 Antibody Screen Negative 04/05/19 05:00 Active Medications - Current Medications Current Medications: Generic Name Dose Route Start Last Admin Trade Name Freq PRN Reason Stop Dose Admin Acetaminophen 650 mg 04/04/19 10:42 Tylenol PO Q4H PRN Pain MILD(1-3)/Fever >100.5/FERRO Albuterol 2.5 mg 04/05/19 15:10 04/05/19 15:26 Proventil IH 04/05/19 20:00 2.5 mg PREOP PRN Administration Wheezing Apixaban 10 mg 04/05/19 16:00 Eliquis PO 04/11/19 22:[address] [facility] Protocol Apixaban 5 mg 04/12/19 10:[address] [facility] Protocol Aspirin 81 mg 04/05/19 10:00 04/05/19 11:02 Baby Aspirin PO Not Given QDAY [facility] Atorvastatin Calcium 20 mg 04/04/19 22:00 04/04/19 22:07 Lipitor PO 20 mg QHS [facility] Administration Dextrose 50 ml 04/04/19 20:59 D50w (25gm) Syringe IV PRN PRN Hypoglycemia Famotidine 10 mg 04/04/19 22:00 04/05/19 11:02 Pepcid PO Not Given BID [facility] Hydralazine HCl 10 mg 04/04/19 10:45 Apresoline IV Q4H PRN BP >160/100 Sodium Chloride 1,000 mls @ 200 mls/hr 04/05/19 16:00 Nacl 0.9% 1000 Ml IV 04/05/19 20:[address] [facility] Insulin Human Lispro 0 unit 04/04/19 22:00 04/05/19 13:39 [facility] Protocol Lorazepam 1 mg 04/04/19 20:59 Ativan IV Q4H PRN Agitation Meclizine HCl 12.5 mg 04/04/19 15:06 Antivert PO Q12H PRN Vertigo Memantine 10 mg 04/04/19 22:00 04/05/19 11:02 Namenda PO Not Given BID [facility] Metformin HCl 500 mg 04/06/19 08:[address] [facility] Metoprolol Tartrate 12.5 mg 04/04/19 22:00 04/05/19 11:02 Lopressor PO Not Given BID [facility] Miscellaneous Medication 0.5 mg 04/05/19 10:00 Dutasteride [Avodart] PO DAILY [facility] Morphine Sulfate 2 mg 04/04/19 10:42 04/05/19 10:30 Morphine IV 2 mg Q4H PRN Administration Pain, Moderate (4-6) Nicotine 14 mg 04/04/19 21:00 04/05/19 10:29 Habitrol TD [address] [facility] Administration Ondansetron HCl 4 mg 04/04/19 10:42 Zofran IV Q8H PRN Nausea And Vomiting Oxycodone/Acetaminophen 1 tab 04/04/19 10:42 Percocet 5/325 PO Q6H PRN Pain, Moderate (4-6) Sertraline HCl 100 mg 04/05/19 10:00 04/05/19 11:03 Zoloft PO Not Given DAILY [facility] Sodium Chloride 10 ml 04/04/19 22:00 04/05/19 10:50 Sodium Chloride Flush Syringe 10 Ml IV 10 ml BID [facility] Administration Sodium Chloride 10 ml 04/04/19 10:42 Sodium Chloride Flush Syringe 10 Ml IV PRN PRN LINE FLUSH Vitamin E 400 unit 04/05/19 10:00 04/05/19 11:03 Vitamin E Cap PO Not Given QDAY [facility] Nutrition/Malnutrition Assess - Dietary Evaluation Nutrition/Malnutrition Findings: Nutrition Notes Start: 04/05/19 09:30 Freq: Status: Active Protocol: Document 04/05/19 12:21 LM (Rec: 04/05/19 12:30 LM [id number]) Nutrition Notes Need for Assessment generated from: MD Order,Education Current Diagnosis Coronary Artery Disease, Diabetes,Hypertension Other Pertinent Diagnosis Dementia, kidney stones, LLE DVT Subjective/Other Information MD consult for diet education. Unable to speak to pt at time of visit due to procedure. Nutrition Intervention Follow-Up By: 04/06/19 Additional Comments F/U for Diet education
[2019-04-05] MEDS ORDERED: NACL 0.9% 1000 ML 1,000 ML IV SCH (16:00)
[2019-04-05] MEDS ORDERED: HEPARIN/ 0.45% NACL-25,000 UNIT/500 ML 25,000 UNIT/500 ML BAG IV SCH (16:00)
[2019-04-05] MEDS ORDERED: HEPARIN/ 0.45% NACL-25,000 UNIT/500 ML 25,000 UNIT/500 ML BAG ONE (16:06)
[2019-04-05] MEDS: ELIQUIS PO SCH ×2 (16:30→22:00)
--- NOTE | 2019-04-05 16:51 | Cat Scan Report ---
CT BRAIN: 04/05/2019 INDICATION / CLINICAL INFORMATION: MAIN: dementia POST J[employer]IOR [employer] PROCEDURE [id number] . COMPARISON: None available. FINDINGS: BRAIN/INTRACRANIAL STRUCTURES: CT images of the brain were obtained. There is evidence of intravascul ar contrast, presumably related to the recent catheterization procedure. There is no definite evidence of acute abnormality. Cortical and subcortical hypoattenuation is prese nt in the high right frontal lobe, which is most consistent with chronic ischemic change. Prominent underlying diffuse cerebral atrophy is present. There is no evidence of hemorrhage or mass. There are no abnormal extra-axial fluid collections. EXTRACRANIAL STRUCTURES: Unremarkable. IMPRESSION: No definite acute abnormality. High right frontal cortical encephalomalacia. Chronic and age-related change. All CT scans at this location are performed using dose reduction to ALARA by means of automated expos ure control. Signer Name: Wisam Aguilera MD Signed: 04/05/2019 4:46 PM Workstation Name: [id number]
[2019-04-06] MEDS: ATIVAN IV PRN ×2 (04:27→21:03)
[2019-04-06 05:28] LABS: Basophils % (Auto) 0.4 % (0.0-1.8); Eosinophils # (Auto) 0.4 K/mm3 (0.0-0.4); Eosinophils % (Auto) 4.2 % (0.0-4.3); Hematocrit 34.8 % (35.5-45.6); Hemoglobin 11.8 gm/dl (11.8-15.2); Lymphocytes # (Auto) 1.5 K/mm3 (1.2-5.4); Lymphocytes % (Auto) 16.6 % (13.4-35.0); Mean Corpuscular HGB Conc 34 % (32-34); Mean Corpuscular Volume 94 fl (84-94); Monocytes # (Auto) 0.9 K/mm3 (0.0-0.8); Monocytes % (Auto) 9.5 % (0.0-7.3); Platelet Count 142 K/mm3 (140-440); Red Blood Count 3.72 M/mm3 (3.65-5.03); Red Cell Distribution Width 14.3 % (13.2-15.2)
[2019-04-06 05:40] LABS: BUN/Creatinine Ratio 17; Blood Urea Nitrogen 10 mg/dL (9-20); Calcium 8.3 mg/dL (8.4-10.2); Hemolysis Index 22
[2019-04-06] MEDS ORDERED: GLUCOPHAGE PO SCH (08:00)
[2019-04-06] MEDS: HumaLOG SUB-Q SCH ×4 (08:53→21:17)
[2019-04-06] MEDS: SODIUM CHLORIDE FLUSH SYRINGE 10 ML IV SCH ×2 (10:20→21:05)
[2019-04-06] MEDS: ZOLOFT PO SCH (12:30)
[2019-04-06] MEDS: BABY ASPIRIN PO SCH (12:30)
[2019-04-06] MEDS: PEPCID PO SCH ×2 (12:30→21:01)
[2019-04-06] MEDS: LOPRESSOR PO SCH ×2 (12:31→21:02)
[2019-04-06] MEDS: VITAMIN E CAP PO SCH (12:33)
[2019-04-06] MEDS: HABITROL TD SCH (12:33)
[2019-04-06] MEDS: ELIQUIS PO SCH ×2 (12:34→21:04)
[2019-04-06] MEDS: NAMENDA PO SCH ×2 (12:34→21:04)
--- NOTE | 2019-04-06 13:43 | Progress Note ---
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 Thrombolysis complicated by low fibrinogen requiring replacement with cryoprecipitate. CT head no head bleed. Mental status at baseline. Doing better. Legs are asymptomatic. ARELIS hose in place. Ambulate PRN. Can be transferred to floor in no issue with PT. Anticoagulation for life. 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 He was a truck mechanic. Given multiple DVT in the past, will need to be anticoagulated for life given at least 2 DVTs. Subjective Date of service: 04/06/19 Interval history: Doing well. No leg pain. Left leg feels good. No hematoma. swelling improved. Removed pressure bandage. Objective - Constitutional Vitals: Vital Signs - 12hr 04/06/19 04/06/19 04/06/19 01:40 01:50 02:00 Temperature Pulse Rate 70 74 Pulse Rate [ From Monitor] Respiratory 20 20 Rate Blood Pressure 107/65 107/65 113/58 O2 Sat by Pulse 98 97 98 Oximetry 04/06/19 04/06/19 04/06/19 02:10 02:20 02:30 Temperature Pulse Rate Pulse Rate [ From Monitor] Respiratory Rate Blood Pressure 113/58 113/58 95/58 O2 Sat by Pulse 98 98 97 Oximetry 04/06/19 04/06/19 04/06/19 02:40 02:50 03:00 Temperature Pulse Rate Pulse Rate [ From Monitor] Respiratory Rate Blood Pressure 95/58 95/58 106/57 O2 Sat by Pulse 99 99 98 Oximetry 04/06/19 04/06/19 04/06/19 03:10 03:20 03:30 Temperature Pulse Rate Pulse Rate [ From Monitor] Respiratory Rate Blood Pressure 95/58 95/58 104/55 O2 Sat by Pulse 98 98 98 Oximetry 04/06/19 04/06/19 04/06/19 03:40 03:50 03:55 Temperature Pulse Rate 62 75 Pulse Rate [ 71 From Monitor] Respiratory 17 18 18 Rate Blood Pressure 104/55 O2 Sat by Pulse 98 99 96 Oximetry 04/06/19 04/06/19 04/06/19 04:00 04:10 04:20 Temperature 97.7 F Pulse Rate 70 72 71 Pulse Rate [ From Monitor] Respiratory 22 20 15 Rate Blood Pressure 104/55 131/64 131/64 O2 Sat by Pulse 99 98 98 Oximetry 04/06/19 04/06/19 04/06/19 04:30 04:40 04:50 Temperature Pulse Rate 66 66 67 Pulse Rate [ From Monitor] Respiratory 18 17 21 Rate Blood Pressure 131/64 111/62 111/62 O2 Sat by Pulse 99 99 99 Oximetry 04/06/19 04/06/19 04/06/19 05:00 05:10 05:20 Temperature Pulse Rate 65 68 69 Pulse Rate [ From Monitor] Respiratory 18 18 20 Rate Blood Pressure 111/62 101/56 101/56 O2 Sat by Pulse 98 98 99 Oximetry 04/06/19 04/06/19 04/06/19 05:30 05:40 05:50 Temperature Pulse Rate 66 73 70 Pulse Rate [ From Monitor] Respiratory 19 22 22 Rate Blood Pressure 101/56 107/55 107/55 O2 Sat by Pulse 97 100 99 Oximetry 04/06/19 04/06/19 04/06/19 06:00 07:00 08:00 Temperature 98.4 F Pulse Rate 75 66 71 Pulse Rate [ From Monitor] Respiratory 21 19 20 Rate Blood Pressure 121/68 104/53 115/55 O2 Sat by Pulse 98 99 90 Oximetry 04/06/19 04/06/19 04/06/19 08:21 09:00 10:00 Temperature Pulse Rate 67 68 Pulse Rate [ 72 From Monitor] Respiratory 19 19 Rate Blood Pressure 108/55 103/55 O2 Sat by Pulse 92 97 94 Oximetry 04/06/19 04/06/19 04/06/19 11:00 12:00 12:01 Temperature 98 F Pulse Rate 68 74 Pulse Rate [ From Monitor] Respiratory 22 15 Rate Blood Pressure 121/62 127/66 O2 Sat by Pulse 97 95 Oximetry 04/06/19 04/06/19 12:31 13:00 Temperature Pulse Rate 76 120 H Pulse Rate [ 99 H From Monitor] Respiratory 21 Rate Blood Pressure 130/72 124/68 O2 Sat by Pulse 96 Oximetry General appearance: Present: no acute distress - EENT Eyes: EOM intact ENT: hearing intact - Respiratory Respiratory effort: normal Extremities: no ischemia, normal temperature, normal color Extremity abnormal: edema (Improved LLE), pulses diminished (LLE palpable pedal pulses, RLE nonpalpable pedal pulses) - Psychiatric Psychiatric: cooperative - Labs CBC & Chem 7: 04/06/19 04:27 04/06/19 04:27 Labs: Abnormal lab results 04/05/19 04/05/19 04/06/19 Range/Units 16:57 22:14 04:27 Hct 34.8 L (35.5-45.6) % [place] % (Auto) 9.5 H (0.0-7.3) % [place] # 0.9 H (0.0-0.8) K/mm3 Potassium (3.6-5.0) mmol/L Creatinine (0.8-1.5) mg/dL Glucose (75-100) mg/dL POC Glucose 184 H 147 H (70-105) Calcium (8.4-10.2) mg/dL 04/06/19 04/06/19 04/06/19 Range/Units 04:27 07:42 11:45 Hct (35.5-45.6) % [place] % (Auto) (0.0-7.3) % [place] # (0.0-0.8) K/mm3 Potassium 3.5 L (3.6-5.0) mmol/L Creatinine 0.6 L (0.8-1.5) mg/dL Glucose 154 H (75-100) mg/dL POC Glucose 173 H 158 H (70-105) Calcium 8.3 L (8.4-10.2) mg/dL Medications & Allergies - Medications Allergies/Adverse Reactions: Allergies No Known Allergies Allergy (Verified 03/11/19 17:33) Home Medications: Home Medications Medication Instructions Recorded Confirmed Last Taken Type Alpha Lipoic Acid 200 mg PO DAILY 03/11/19 04/05/19 04/03/19 09:00 History Aspirin 81 mg PO DAILY 03/11/19 04/05/19 04/03/19 History AtorvaSTATin [Lipitor] 20 mg PO QHS 03/11/19 04/05/19 04/03/19 History Dutasteride 25 mg PO DAILY 03/11/19 04/05/19 04/03/19 History Dutasteride [Avodart] 0.5 mg PO DAILY 03/11/19 04/05/19 04/03/19 09:00 History Ginkgo Biloba 60 mg PO BID 03/11/19 04/05/19 04/03/19 History Meclizine 1 tab PO PRN 03/11/19 04/05/19 04/03/19 History Memantine [Namenda] 10 mg PO BID 03/11/19 04/05/19 04/03/19 History Metoprolol Tartrate 12.5 mg PO BID 03/11/19 04/05/19 04/03/19 18:00 History Pepcid 10 mg PO BID 03/11/19 04/05/19 04/03/19 18:00 History Vitamin E 400 units PO DAILY 03/11/19 04/05/19 04/03/19 History Zoloft 100 mg PO DAILY 03/11/19 04/05/19 04/03/19 History metFORMIN 500 mg PO BID 03/11/19 04/05/19 04/03/19 18:00 History Active Medications: Generic Name Dose Route Start Last Admin Trade Name Ironq PRN Reason Stop Dose Admin Acetaminophen 650 mg 04/04/19 10:42 04/05/19 22:14 Tylenol PO 650 mg Q4H PRN Administration Pain MILD(1-3)/Fever >100.5/FERRO Apixaban 10 mg 04/05/19 16:00 04/06/19 12:34 Eliquis PO 04/11/19 22:01 10 mg Q12HR [facility] Administration Protocol Apixaban 5 mg 04/12/19 10:00 Eliquis PO Q12HR [facility] Protocol Aspirin 81 mg 04/05/19 10:00 04/06/19 12:30 Baby Aspirin PO 81 mg QDAY [facility] Administration Atorvastatin Calcium 20 mg 04/04/19 22:00 04/05/19 22:14 Lipitor PO 20 mg QHS [facility] Administration Dextrose 50 ml 04/04/19 20:59 D50w (25gm) Syringe IV PRN PRN Hypoglycemia Famotidine 10 mg 04/04/19 22:00 04/06/19 12:30 Pepcid PO 10 mg BID [facility] Administration Hydralazine HCl 10 mg 04/04/19 10:45 Apresoline IV Q4H PRN BP >160/100 Insulin Human Lispro 0 unit 04/04/19 22:00 04/06/19 08:53 Humalog SUB-Q 1 unit ACHS [facility] Administration Protocol Lorazepam 1 mg 04/04/19 20:59 04/06/19 04:27 Ativan IV 1 mg Q4H PRN Administration Agitation Meclizine HCl 12.5 mg 04/04/19 15:06 Antivert PO Q12H PRN Vertigo Memantine 10 mg 04/04/19 22:00 04/06/19 12:34 Namenda PO 10 mg BID [facility] Administration Metformin HCl 500 mg 04/07/19 08:00 Glucophage PO BIDDIAB [facility] Metoprolol Tartrate 12.5 mg 04/04/19 22:00 04/06/19 12:31 Lopressor PO 12.5 mg BID [facility] Administration Miscellaneous Medication 0.5 mg 04/05/19 10:00 Dutasteride [Avodart] PO DAILY [facility] Morphine Sulfate 2 mg 04/04/19 10:42 04/05/19 10:30 Morphine IV 2 mg Q4H PRN Administration Pain, Moderate (4-6) Nicotine 14 mg 04/04/19 21:00 04/06/19 12:33 Habitrol TD 14 mg QDAY [facility] Administration Ondansetron HCl 4 mg 04/04/19 10:42 Zofran IV Q8H PRN Nausea And Vomiting Oxycodone/Acetaminophen 1 tab 04/04/19 10:42 Percocet 5/325 PO Q6H PRN Pain, Moderate (4-6) Sertraline HCl 100 mg 04/05/19 10:00 04/06/19 12:30 Zoloft PO 100 mg DAILY [facility] Administration Sodium Chloride 10 ml 04/04/19 22:00 04/05/19 22:15 Sodium Chloride Flush Syringe 10 Ml IV 10 ml BID [facility] Administration Sodium Chloride 10 ml 04/04/19 10:42 Sodium Chloride Flush Syringe 10 Ml IV PRN PRN LINE FLUSH Vitamin E 400 unit 04/05/19 10:00 04/06/19 12:33 Vitamin E Cap PO 400 unit QDAY [facility] Administration
[2019-04-06] MEDS ORDERED: PROVENTIL IH PRN (15:28)
--- NOTE | 2019-04-06 15:29 | Progress Note ---
Assessment and Plan Acute VTE with left lower extremity DVT and right lower extremity DVT Acute hypoxemic respiratory failure, on 2 liters nasal cannula. History of hypertension. Coronary artery disease. Diabetes. Gastroesophageal reflux disease. History of migraine headaches. Vascular dementia. Nephrolithiasis. Tobacco use disorder - continue full anticoagulation - serial H&H acutely - watch for S&S of bleeding - supplemental oxygen as needed to keep O2 sat's > 90% - CTA chest negative for malignancy but LLL P.E. seen - continue management per vascular team - hematology evaluation per attending - continue GI prophylaxis - tobacco abstinence counseled - continue other care per attending / other consultants ... re-evaluate in am & prn Subjective Date of service: 04/06/19 Principal diagnosis: Acute VTE; CAD; Tobacco Use Disorder Interval history: Patient is seen today for: Acute VTE; CAD; Tobacco Use Disorder Seen and examined at bedside; 24hour events reviewed; nursing and respiratory care staff consulted; no adverse overnight events reported to me; resting peacefully in bed; denies acute chest pains or palpitations; no gross bleeding Objective Vital Signs - 12hr 04/06/19 04/06/19 04/06/19 03:30 03:40 03:50 Temperature Pulse Rate 62 75 Pulse Rate [ From Monitor] Respiratory 17 18 Rate Blood Pressure 104/55 104/55 O2 Sat by Pulse 98 98 99 Oximetry 04/06/19 04/06/19 04/06/19 03:55 04:00 04:10 Temperature 97.7 F Pulse Rate 70 72 Pulse Rate [ 71 From Monitor] Respiratory 18 22 20 Rate Blood Pressure 104/55 131/64 O2 Sat by Pulse 96 99 98 Oximetry 04/06/19 04/06/19 04/06/19 04:20 04:30 04:40 Temperature Pulse Rate 71 66 66 Pulse Rate [ From Monitor] Respiratory 15 18 17 Rate Blood Pressure 131/64 131/64 111/62 O2 Sat by Pulse 98 99 99 Oximetry 04/06/19 04/06/19 04/06/19 04:50 05:00 05:10 Temperature Pulse Rate 67 65 68 Pulse Rate [ From Monitor] Respiratory 21 18 18 Rate Blood Pressure 111/62 111/62 101/56 O2 Sat by Pulse 99 98 98 Oximetry 04/06/19 04/06/19 04/06/19 05:20 05:30 05:40 Temperature Pulse Rate 69 66 73 Pulse Rate [ From Monitor] Respiratory 20 19 22 Rate Blood Pressure 101/56 101/56 107/55 O2 Sat by Pulse 99 97 100 Oximetry 04/06/19 04/06/19 04/06/19 05:50 06:00 07:00 Temperature Pulse Rate 70 75 66 Pulse Rate [ From Monitor] Respiratory 22 21 19 Rate Blood Pressure 107/55 121/68 104/53 O2 Sat by Pulse 99 98 99 Oximetry 04/06/19 04/06/19 04/06/19 08:00 08:21 09:00 Temperature 98.4 F Pulse Rate 71 67 Pulse Rate [ 72 From Monitor] Respiratory 20 19 Rate Blood Pressure 115/55 108/55 O2 Sat by Pulse 90 92 97 Oximetry 04/06/19 04/06/19 04/06/19 10:00 11:00 12:00 Temperature 98 F Pulse Rate 68 68 Pulse Rate [ From Monitor] Respiratory 19 22 Rate Blood Pressure 103/55 121/62 O2 Sat by Pulse 94 97 Oximetry 04/06/19 04/06/19 04/06/19 12:01 12:31 13:00 Temperature Pulse Rate 74 76 120 H Pulse Rate [ 99 H From Monitor] Respiratory 15 21 Rate Blood Pressure 127/66 130/72 124/68 O2 Sat by Pulse 95 96 Oximetry Constitutional: no acute distress, alert, other (elderly looking CM normocephalic with mildly increased resp effort at rest) Eyes: non-icteric ENT: oropharynx moist Neck: supple Effort: mildly labored Ascultation: Bilateral: clear, diminished breath sounds Percussion: Bilateral: not dull Cardiovascular: regular rate and rhythm Gastrointestinal: normoactive bowel sounds, soft, non-tender, non-distended Integumentary: erythema (leg) Extremities: no cyanosis, pink and warm, pulses normal, no ischemia or petechiae, edema Neurologic: normal mental status, non-focal exam (grossly), pupils equal and round, CN II-XII normal, motor strength normal and Psychiatric: mood appropriate, affect normal CBC and BMP: 04/07/19 05:38 04/07/19 05:38 ABG, PT/INR, D-dimer: PT/INR, D-dimer PT 18.6 Sec. (12.2-14.9) H 04/05/19 05:20 INR 1.59 (0.87-1.13) H 04/05/19 05:20 Abnormal lab findings: Abnormal Labs 04/04/19 04/04/19 04/04/19 07:30 07:30 07:30 Hct [place] % (Auto) [place] # Seg Neutrophils % 72.0 H PT INR APTT 24.0 L Fibrinogen Heparin Anti-Xa Level Potassium Chloride 95.7 L Creatinine Glucose 211 H POC Glucose Calcium 04/04/19 04/04/19 04/04/19 13:50 13:50 13:50 Hct [place] % (Auto) 7.9 H [place] # Seg Neutrophils % PT INR APTT 78.1 H* Fibrinogen Heparin Anti-Xa Level Potassium Chloride Creatinine 0.7 L Glucose 159 H POC Glucose Calcium 04/04/19 04/05/19 04/05/19 22:08 03:53 03:53 Hct [place] % (Auto) 9.3 H [place] # Seg Neutrophils % PT INR APTT Fibrinogen Heparin Anti-Xa Level Potassium 3.5 L Chloride Creatinine 0.7 L Glucose 167 H POC Glucose 212 H Calcium 04/05/19 04/05/19 04/05/19 04:02 05:20 05:39 Hct [place] % (Auto) 9.3 H [place] # Seg Neutrophils % PT 18.6 H INR 1.59 H APTT 45.9 H Fibrinogen 60 L* 61 L* Heparin Anti-Xa Level < 0.10 L Potassium Chloride Creatinine Glucose POC Glucose Calcium 04/05/19 04/05/19 04/06/19 16:57 22:14 04:27 Hct 34.8 L [place] % (Auto) 9.5 H [place] # 0.9 H Seg Neutrophils % PT INR APTT Fibrinogen Heparin Anti-Xa Level Potassium Chloride Creatinine Glucose POC Glucose 184 H 147 H Calcium 04/06/19 04/06/19 04/06/19 04:27 07:42 11:45 Hct [place] % (Auto) [place] # Seg Neutrophils % PT INR APTT Fibrinogen Heparin Anti-Xa Level Potassium 3.5 L Chloride Creatinine 0.6 L Glucose 154 H POC Glucose 173 H 158 [address] Calcium [address] scan - chest: image reviewed (LLL filling defect) Allied health notes reviewed: nursing
--- NOTE | 2019-04-06 18:03 | Cat Scan Report ---
CTA CHEST WITH IV CONTRAST, 04/06/2019 INDICATION: Shortness of breath. TECHNIQUE: Axial CT images were obtained through the chest after injection of IV contrast. Coronal oblique 2-D reconstruction images were produced. 3 plane MIP reconstruction images were produced at an [employer] workstation. All CTs at this facility utilize dose reduction techniques including automated expos ure control, iterative reconstruction and weight based dosing when appropriate to reduce patient radi ation dose to as low as reasonable achievable. COMPARISON: No relevant prior studies are available for comparison. FINDINGS: There are segmental and subsegmental filling defects extending to the left lower lobe. No large or ce ntral pulmonary embolism is identified. The heart is mildly enlarged. Atherosclerotic vascular calcif ications are noted within the distribution of the coronary vessels and along the thoracic aorta. Eval uation of the lung parenchyma demonstrates no evidence of focal airspace consolidation or pleural eff usion. Limited imaging of the upper abdomen shows no evidence of acute abnormality. Evaluation of bony structures demonstrates no evidence of acute bony abnormality. IMPRESSION: 1. Evaluation positive for left lower lobe pulmonary embolism. 2. Mild cardiomegaly. CRITICAL RESULT: Left lower lobe pulmonary embolism Time of Discovery ([employer] LABORER/DESIGNER/CDT): 4:50 Time of Communication ([employer]ORER/DESIGNER/CDT): 4:58 Licensed Practitioner Receiving Report: Debora Salazar RN Read Back Performed: Yes. Signer Name: Martina Javier MD Signed: 04/06/2019 5:59 PM Workstation Name: [id number]
--- NOTE | 2019-04-06 18:03 | Progress Note ---
Assessment and Plan Assessment and plan: 79 year old man with kidney stones who was planned for a urological procedure who was then found to have extensive left lower extremity DVT. The patient's procedure was aborted and then he was admitted to the hospital. Extensive left lower extremity DVT Placement of thrombolytic catheter was done on IVC filter was placed, vascular surgery input appreciated Continue Heparin drip, sp IVC filter, Needs lifelong anticoagulation Vascular dementia with acute metabolic encephalopathy Supportive care, Ativan as needed, sitter ordered in the room as patient was pulling his lines and was confused Diabetes SSI GERD pepcid CAD Continue cardiac medications Current everyday smoker Nicotine patch, smoking cessation counseling performed for 11 minutes CCT 33 mins History Interval history: Patient has been confused, but he is confused at baseline. He has no complaints of chest pain shortness of breath, fever, or vomiting Hospitalist Physical - Physical exam Narrative exam: General.: Appears well, no distress, nontoxic HEENT: Moist mucous membranes, extraocular muscles intact, no lymphadenopathy Neck: supple Cardiac: S1-S2 heard Lungs: clear to auscultation bilaterally Abdomen: soft , nontender, nondistended, bowel sounds positive Extremities: Left lower extremity edema Skin: no rash or lesions Neurologic: no gross focal deficits, Patient is demented and confused Psych: calm, and cooperative - Constitutional Vitals: Temp Pulse Resp BP Pulse Ox 98.8 F 87 19 127/65 94 04/06/19 16:00 04/06/19 17:00 04/06/19 17:00 04/06/19 17:00 04/06/19 17:00 General appearance: Present: no acute distress Results - Labs CBC & Chem 7: 04/07/19 05:38 04/07/19 05:38 Labs: Laboratory Last Values WBC 8.9 K/mm3 (4.5-11.0) 04/06/19 04:27 RBC 3.72 M/mm3 (3.65-5.03) 04/06/19 04:27 Hgb 11.8 gm/dl (11.8-15.2) 04/06/19 04:27 Hct 34.8 % (35.5-45.6) L 04/06/19 04:27 MCV 94 fl (84-94) 04/06/19 04:27 MCH 32 pg (28-32) 04/06/19 04:27 MCHC 34 % (32-34) 04/06/19 04:27 RDW 14.3 % (13.2-15.2) 04/06/19 04:27 Plt Count 142 K/mm3 (140-440) 04/06/19 04:27 Lymph % (Auto) 16.6 % (13.4-35.0) 04/06/19 04:27 [place] % (Auto) 9.5 % (0.0-7.3) H 04/06/19 04:27 Eos % (Auto) 4.2 % (0.0-4.3) 04/06/19 04:27 Baso % (Auto) 0.4 % (0.0-1.8) 04/06/19 04:27 Lymph # 1.5 K/mm3 (1.2-5.4) 04/06/19 04:27 [place] # 0.9 K/mm3 (0.0-0.8) H 04/06/19 04:27 Eos # 0.4 K/mm3 (0.0-0.4) 04/06/19 04:27 Baso # 0.0 K/mm3 (0.0-0.1) 04/06/19 04:27 Seg Neutrophils % 69.3 % (40.0-70.0) 04/06/19 04:27 Seg Neutrophils # 6.2 K/mm3 (1.8-7.7) 04/06/19 04:27 PT 18.6 Sec. (12.2-14.9) H 04/05/19 05:20 INR 1.59 (0.87-1.13) H 04/05/19 05:20 APTT 45.9 Sec. (24.2-36.6) H 04/05/19 05:20 233 mg/dl (211-480) 04/05/19 11:54 Heparin Anti-Xa Level < 0.10 U.I./ml (0.3-0.7) L 04/05/19 04:02 Sodium 142 mmol/L (137-145) 04/06/19 04:27 Potassium 3.5 mmol/L (3.6-5.0) L 04/06/19 04:27 Chloride 103.8 mmol/L (98-107) 04/06/19 04:27 Carbon Dioxide 27 mmol/L (22-30) 04/06/19 04:27 15 mmol/L 04/06/19 04:27 BUN 10 mg/dL (9-20) 04/06/19 04:27 0.6 mg/dL (0.8-1.5) L 04/06/19 04:27 Estimated GFR > 60 ml/min 04/06/19 04:27 17 % 04/06/19 04:27 Glucose 154 mg/dL (75-100) H 04/06/19 04:27 POC Glucose 180 (70-105) H 04/06/19 16:23 Calcium 8.3 mg/dL (8.4-10.2) L 04/06/19 04:27 Blood Type O POSITIVE 04/05/19 05:00 Antibody Screen Negative 04/05/19 05:00 Active Medications - Current Medications Current Medications: Generic Name Dose Route Start Last Admin Trade Name Freq PRN Reason Stop Dose Admin Acetaminophen 650 mg 04/04/19 10:42 04/05/19 22:14 Tylenol PO 650 mg Q4H PRN Administration Pain MILD(1-3)/Fever >100.5/FERRO Albuterol 2.5 mg 04/06/19 15:28 Proventil IH Q4HRT PRN Shortness Of Breath Apixaban 10 mg 04/05/19 16:00 04/06/19 12:34 Eliquis PO 04/11/19 22:01 10 mg Q12HR KAMRON Administration Protocol Apixaban 5 mg 04/12/19 10:00 Eliquis PO Q12HR K[facility]RON Protocol Aspirin 81 mg 04/05/19 10:00 04/06/19 12:30 Baby Aspirin PO 81 mg QDAY KAMRON Administration Atorvastatin Calcium 20 mg 04/04/19 22:00 04/05/19 22:14 Lipitor PO 20 mg QHS KAMRON Administration Dextrose 50 ml 04/04/19 20:59 D50w (25gm) Syringe IV PRN PRN Hypoglycemia Famotidine 10 mg 04/04/19 22:00 04/06/19 12:30 Pepcid PO 10 mg BID K[facility]RON Administration Hydralazine HCl 10 mg 04/04/19 10:45 Apresoline IV Q4H PRN BP >160/100 Insulin Human Lispro 0 unit 04/04/19 22:00 04/06/19 08:53 Humalog SUB-Q 1 unit ACHS KAMRON Administration Protocol Lorazepam 1 mg 04/04/19 20:59 04/06/19 04:27 Ativan IV 1 mg Q4H PRN Administration Agitation Meclizine HCl 12.5 mg 04/04/19 15:06 Antivert PO Q12H PRN Vertigo Memantine 10 mg 04/04/19 22:00 04/06/19 12:34 Namenda PO 10 mg BID KAMRON Administration Metformin HCl 500 mg 04/07/19 08:00 Glucophage PO BIDDIAB KAMRON Metoprolol Tartrate 12.5 mg 04/04/19 22:00 04/06/19 12:31 Lopressor PO 12.5 mg BID K[facility]RON Administration Miscellaneous Medication 0.5 mg 04/05/19 10:00 Dutasteride [Avodart] PO DAILY [facility] Morphine Sulfate 2 mg 04/04/19 10:42 04/05/19 10:30 Morphine IV 2 mg Q4H PRN Administration Pain, Moderate (4-6) Nicotine 14 mg 04/04/19 21:00 04/06/19 12:33 Habitrol TD 14 mg QDAY [facility] Administration Ondansetron HCl 4 mg 04/04/19 10:42 Zofran IV Q8H PRN Nausea And Vomiting Oxycodone/Acetaminophen 1 tab 04/04/19 10:42 Percocet 5/325 PO Q6H PRN Pain, Moderate (4-6) Sertraline HCl 100 mg 04/05/19 10:00 04/06/19 12:30 Zoloft PO 100 mg DAILY KAMRON Administration Sodium Chloride 10 ml 04/04/19 22:00 04/05/19 22:15 Sodium Chloride Flush Syringe 10 Ml IV 10 ml BID KAMRON Administration Sodium Chloride 10 ml 04/04/19 10:42 Sodium Chloride Flush Syringe 10 Ml IV PRN PRN LINE FLUSH Vitamin E 400 unit 04/05/19 10:00 04/06/19 12:33 Vitamin E Cap PO 400 unit QDAY KAMRON Administration Nutrition/Malnutrition Assess - Dietary Evaluation Nutrition/Malnutrition Findings: Nutrition Notes Start: 04/05/19 09:30 Freq: Status: Active Protocol: Document 04/05/19 12:21 LM (Rec: 04/05/19 12:30 LM [email or web address]) Nutrition Notes Need for Assessment generated from: MD Order,Education Current Diagnosis Coronary Artery Disease, Diabetes,Hypertension Other Pertinent Diagnosis Dementia, kidney stones, LLE DVT Subjective/Other Information MD consult for diet education. Unable to speak to pt at time of visit due to procedure. Nutrition Intervention Follow-Up By: 04/06/19 Additional Comments F/U for Diet education
--- NOTE | 2019-04-07 01:24 | Consultation ---
PULMONARY CRITICAL CARE CONSULT CONSULTING PHYSICIAN: Dr. Henry. REASON FOR CONSULTATION: Critical care management, status post catheter-directed thrombolysis. CHIEF COMPLAINT AND HISTORY OF PRESENT ILLNESS: As follows: The patient is a 79-year-old male with past medical history significant amongst other things for a diagnosis of diabetes and coronary artery disease, who was apparently due for urological procedure today while in the preoperative area. His had mentioned he had developed new left lower extremity swelling with redness and some pain in the groin. Bilateral lower extremity Dopplers were done and it showed bilateral acute DVT. There was also a large left lower extremity DVT. It seemed like there was significant clot burden in the areas examined. The urologic procedure was abandoned and Vascular Surgery evaluation was requested. He denied any prior history of a DVT. He was scheduled for catheter directed thrombolysis with EKOS catheter as well as an IVC filter. Post-procedure ICU admission was requested for close observation. I should mention that no imaging was done of his chest as far as I can tell. When I stopped by to see him, he was resting in bed, doing better. Denied any acute chest pains. Denied any gross or streaky hemoptysis. The patient has a 10+ pack year tobacco smoking history and is described as an everyday smoker. That really is as much of the history of presentation as I have. PAST MEDICAL HISTORY: Significant for hypertension, coronary artery disease, diabetes, gastroesophageal reflux disease, history of migraines, history of nephrolithiasis and history of vascular dementia. PAST SURGICAL HISTORY: He has had a stent placement and triple bypass surgery in July 2016. MEDICATIONS: He was on at the time I stopped by to see him were reviewed. Pertinent medications include the following: Tylenol 650 mg p.o. q. 4 hours p.r.n. mild pain or fevers, baby aspirin 81 mg p.o. daily, Lipitor 20 mg p.o. at bedtime, Pepcid 10 mg p.o. b.i.d., hydralazine 10 mg IV q. 4 hours p.r.n. for systolic blood pressure greater than 160, diastolic greater than 100. He was on IV heparin via the EKOS system. Insulin via sliding scale. Ativan 1 mg IV q. 4 hours p.r.n. agitation, meclizine 12.5 mg p.o. q. 12 hours p.r.n. vertigo, Namenda 10 mg p.o. b.i.d., metformin 500 mg p.o. b.i.d., Lopressor 12.5 mg p.o. b.i.d., morphine sulfate 2 mg IV q. 4 hours p.r.n. moderate pain, nicotine 14 mg patch to the skin daily, Zofran 4 mg IV q. 8 hours p.r.n. nausea and vomiting, Percocet 5/325 mg 1 tablet p.o. q. 6 hours p.r.n. moderate pain, Zoloft 200 mg p.o. daily, vitamin E 400 units p.o. daily. ALLERGIES: No known drug allergies. DIET: Well-built gentleman. Denies acute weight loss or gain in the preceding few weeks to months. FAMILY AND SOCIAL HISTORY: Lives in the community, has a 10+ pack year tobacco smoking history. Denies illicit drug use or abuse, alcohol use or abuse. REVIEW OF SYSTEMS: No loss of consciousness. No new onset seizures. No new onset focal weakness. No gross hematochezia or melena. No gross hematuria or dysuria. No hematemesis. No hemoptysis. No palpitations. Denies heat or cold intolerance. Denies polydipsia or polyuria. Complete 13-system review of systems obtained. Pertinent positives and/or negatives as in body of history above, otherwise they are noncontributory. PHYSICAL EXAMINATION: VITAL SIGNS: At presentation, he was afebrile, temperature 98.3 degrees Fahrenheit with a pulse of 89, respiratory rate of 16, blood pressure 113/73, O2 sats were 96%, inspired oxygen concentration at that time was not recorded. When I stopped by to see him, O2 sats were 97% on 2 liters nasal cannula. GENERAL: He is an elderly looking well-developed male, normocephalic, atraumatic, talking to me in full sentences without significant respiratory distress. HEAD, EYES, EARS, NOSE AND THROAT: He is anicteric. Again, no conjunctival erythema. Oropharynx is moist. Mallampati #2 oropharynx. No gross jugular venous distention. Grossly, no palpable lymph nodes in the supraclavicular or submandibular lymph node chains. LUNGS: Auscultation of both lung zimmerman significant for inspiratory bibasilar rhonchi, no wheezing. HEART: Heart sounds 1 and 2 are heard. They were regular in rate and rhythm at the time of my evaluation without overt rubs or murmurs. ABDOMEN: Soft, full, bowel sounds are positive, nontender, no palpable hepatosplenomegaly. EXTREMITIES: Without overt digital clubbing or cyanosis. He has a left lower extremity nonpitting edema, mild erythema. Pedal pulses were palpable. NEUROLOGIC: Pupils equal, round, about 4 mm, reactive to light. Extraocular muscle movements are intact. He moves all 4 extremities spontaneously. Normal speech. SKIN: Normal turgor without overt cellulitis. He does have erythema in the area of the groin and left lower extremity pedal edema. No overt type decubitus ulcers that I can see. PSYCHIATRIC: His mood was normal and his affect was appropriate. LABORATORY DATA: From my review are as follows: Admission white cell count 10,600, hemoglobin 13.7, hematocrit 40.6, platelet count 176. No manual differential. INR 0.96. Serum sodium 137, potassium 4.6, chloride 96, bicarbonate 28, BUN 11, creatinine 0.8, glucose 211. No microbiology studies. Lower extremity Dopplers were done and as reported above. He also had a CT scan of the head and no definite acute intracranial abnormality. He did have some chronic changes. ASSESSMENT: 1. Acute venous thromboembolic disease with left lower extremity deep vein thrombosis and right lower extremity deep venous thrombosis. 2. Acute hypoxemic respiratory failure, on 2 liters nasal cannula. 3. History of hypertension. 4. Coronary artery disease. 5. Diabetes. 6. Gastroesophageal reflux disease. 7. History of migraine headaches. 8. Vascular dementia. 9. Nephrolithiasis. 10. Tobacco use disorder. PLAN: We will go ahead and wean him off oxygen, keeping O2 sats greater than or equal to about 90%. Aspiration precautions will be maintained. The utility of a CT angiogram at this point is a little equivocal. He is going to be treated with oral anticoagulation does not appear to have significant clot burden in his lungs just based on his clinical exam; however, I will discuss with the vascular team and decided that it will be of benefit. We will go ahead with quite likely a CT angiogram of the chest, especially considering his age, though it might be beneficial to do a CT of the chest as kind of like a screen for occult malignancy that may have led to the DVT and the VTE in the first case. His kidney function appears to be good. I will be discussing again with the vascular team and with the patient. I will get a chest x-ray, especially in light of the clinical exam and the tobacco smoking history. He is appropriately on GI prophylaxis, especially with him also on full anticoagulation. He will be observed in the intensive care unit with serial heparin anti-Xa assays. Flu and pneumonia vaccination will be addressed per protocol. Thank you very much for the consult Dr. Henry. We will follow along. We will make further recommendations as picture progresses/becomes clearer. JOB# [id number] DAVE/TOM TIERNEY
[2019-04-07 05:53] LABS: Basophils # (Auto) 0.1 K/mm3 (0.0-0.1); Basophils % (Auto) 1.2 % (0.0-1.8); Eosinophils # (Auto) 0.4 K/mm3 (0.0-0.4); Eosinophils % (Auto) 4.2 % (0.0-4.3); Hematocrit 36.3 % (35.5-45.6); Hemoglobin 12.2 gm/dl (11.8-15.2); Lymphocytes # (Auto) 1.4 K/mm3 (1.2-5.4); Lymphocytes % (Auto) 13.5 % (13.4-35.0); Mean Corpuscular HGB Conc 34 % (32-34); Mean Corpuscular Volume 93 fl (84-94); Monocytes # (Auto) 0.8 K/mm3 (0.0-0.8); Monocytes % (Auto) 7.8 % (0.0-7.3); Platelet Count 184 K/mm3 (140-440)
[2019-04-07 06:05] LABS: BUN/Creatinine Ratio 13; Blood Urea Nitrogen 8 mg/dL (9-20); Calcium 8.7 mg/dL (8.4-10.2); Hemolysis Index 45
[2019-04-07] MEDS ORDERED: GLUCOPHAGE PO SCH (08:00)
--- NOTE | 2019-04-07 08:03 | Progress Note ---
Hospitalist Physical - Constitutional Vitals: Temp Pulse Resp BP Pulse Ox 98.1 F 81 22 164/78 97 04/07/19 04:00 04/07/19 06:00 04/07/19 06:00 04/07/19 06:00 04/07/19 06:00 General appearance: Present: no acute distress Results - Labs CBC & Chem 7: 04/07/19 05:38 04/07/19 05:38 Labs: Laboratory Last Values WBC 10.3 K/mm3 (4.5-11.0) 04/07/19 05:38 RBC 3.90 M/mm3 (3.65-5.03) 04/07/19 05:38 Hgb 12.2 gm/dl (11.8-15.2) 04/07/19 05:38 Hct 36.3 % (35.5-45.6) 04/07/19 05:38 MCV 93 fl (84-94) 04/07/19 05:38 MCH 31 pg (28-32) 04/07/19 05:38 MCHC 34 % (32-34) 04/07/19 05:38 RDW 14.0 % (13.2-15.2) 04/07/19 05:38 Plt Count 184 K/mm3 (140-440) 04/07/19 05:38 Lymph % (Auto) 13.5 % (13.4-35.0) 04/07/19 05:38 [place] % (Auto) 7.8 % (0.0-7.3) H 04/07/19 05:38 Eos % (Auto) 4.2 % (0.0-4.3) 04/07/19 05:38 Baso % (Auto) 1.2 % (0.0-1.8) 04/07/19 05:38 Lymph # 1.4 K/mm3 (1.2-5.4) 04/07/19 05:38 [place] # 0.8 K/mm3 (0.0-0.8) 04/07/19 05:38 Eos # 0.4 K/mm3 (0.0-0.4) 04/07/19 05:38 Baso # 0.1 K/mm3 (0.0-0.1) 04/07/19 05:38 Seg Neutrophils % 73.3 % (40.0-70.0) H 04/07/19 05:38 Seg Neutrophils # 7.6 K/mm3 (1.8-7.7) 04/07/19 05:38 PT 18.6 Sec. (12.2-14.9) H 04/05/19 05:20 INR 1.59 (0.87-1.13) H 04/05/19 05:20 APTT 45.9 Sec. (24.2-36.6) H 04/05/19 05:20 233 mg/dl (211-480) 04/05/19 11:54 Heparin Anti-Xa Level < 0.10 U.I./ml (0.3-0.7) L 04/05/19 04:02 Sodium 139 mmol/L (137-145) 04/07/19 05:38 Potassium 3.7 mmol/L (3.6-5.0) 04/07/19 05:38 Chloride 99.7 mmol/L (98-107) 04/07/19 05:38 Carbon Dioxide 27 mmol/L (22-30) 04/07/19 05:38 16 mmol/L 04/07/19 05:38 BUN 8 mg/dL (9-20) L 04/07/19 05:38 0.6 mg/dL (0.8-1.5) L 04/07/19 05:38 Estimated GFR > 60 ml/min 04/07/19 05:38 13 % 04/07/19 05:38 Glucose 165 mg/dL (75-100) H 04/07/19 05:38 POC Glucose 134 (70-105) H 04/06/19 21:17 Calcium 8.7 mg/dL (8.4-10.2) 04/07/19 05:38 Blood Type O POSITIVE 04/05/19 05:00 Antibody Screen Negative 04/05/19 05:00 Active Medications - Current Medications Current Medications: Generic Name Dose Route Start Last Admin Trade Name Freq PRN Reason Stop Dose Admin Acetaminophen 650 mg 04/04/19 10:42 04/05/19 22:14 Tylenol PO 650 mg Q4H PRN Administration Pain MILD(1-3)/Fever >100.5/FERRO Albuterol 2.5 mg 04/06/19 15:28 Proventil IH Q4HRT PRN Shortness Of Breath Apixaban 10 mg 04/05/19 16:00 04/06/19 21:04 Eliquis PO 04/11/19 22:01 10 mg Q12HR KAMRON Administration Protocol Apixaban 5 mg 04/12/19 10:00 Eliquis PO Q12HR KAMRON Protocol Aspirin 81 mg 04/05/19 10:00 04/06/19 12:30 Baby Aspirin PO 81 mg QDAY KAMRON Administration Atorvastatin Calcium 20 mg 04/04/19 22:00 04/06/19 21:01 Lipitor PO 20 mg QHS KAMRON Administration Dextrose 50 ml 04/04/19 20:59 D50w (25gm) Syringe IV PRN PRN Hypoglycemia Famotidine 10 mg 04/04/19 22:00 04/06/19 21:01 Pepcid PO 10 mg BID KAMRON Administration Hydralazine HCl 10 mg 04/04/19 10:45 04/07/19 02:10 Apresoline IV 10 mg Q4H PRN Administration BP >160/100 Insulin Human Lispro 0 unit 04/04/19 22:00 04/06/19 21:17 Humalog SUB-Q Not Given ACHS [facility] Protocol Lorazepam 1 mg 04/04/19 20:59 04/06/19 21:03 Ativan IV 1 mg Q4H PRN Administration Agitation Meclizine HCl 12.5 mg 04/04/19 15:06 Antivert PO Q12H PRN Vertigo Memantine 10 mg 04/04/19 22:00 04/06/19 21:04 Namenda PO 10 mg BID K[facility]RON Administration Metformin HCl 500 mg 04/07/19 08:00 Glucophage PO BIDDIAB [facility] Metoprolol Tartrate 12.5 mg 04/04/19 22:00 04/06/19 21:02 Lopressor PO Not Given BID [facility] Miscellaneous Medication 0.5 mg 04/05/19 10:00 Dutasteride [Avodart] PO DAILY [facility] Morphine Sulfate 2 mg 04/04/19 10:42 04/05/19 10:30 Morphine IV 2 mg Q4H PRN Administration Pain, Moderate (4-6) Nicotine 14 mg 04/04/19 21:00 04/06/19 12:33 Habitrol TD 14 mg QDAY KAMRON Administration Ondansetron HCl 4 mg 04/04/19 10:42 Zofran IV Q8H PRN Nausea And Vomiting Oxycodone/Acetaminophen 1 tab 04/04/19 10:42 Percocet 5/325 PO Q6H PRN Pain, Moderate (4-6) Sertraline HCl 100 mg 04/05/19 10:00 04/06/19 12:30 Zoloft PO 100 mg DAILY [facility] Administration Sodium Chloride 10 ml 04/04/19 22:00 04/06/19 21:05 Sodium Chloride Flush Syringe 10 Ml IV 10 ml BID K[facility] Administration Sodium Chloride 10 ml 04/04/19 10:42 Sodium Chloride Flush Syringe 10 Ml IV PRN PRN LINE FLUSH Vitamin E 400 unit 04/05/19 10:00 04/06/19 12:33 Vitamin E Cap PO 400 unit QDAY [facility] Administration Nutrition/Malnutrition Assess - Dietary Evaluation Nutrition/Malnutrition Findings: Nutrition Notes Start: 04/05/19 09:30 Freq: Status: Active Protocol: Document 04/05/19 12:21 LM (Rec: 04/05/19 12:30 LM [email or web address]) Nutrition Notes Need for Assessment generated from: MD Order,Education Current Diagnosis Coronary Artery Disease, Diabetes,Hypertension Other Pertinent Diagnosis Dementia, kidney stones, LLE DVT Subjective/Other Information MD consult for diet education. Unable to speak to pt at time of visit due to procedure. Nutrition Intervention Follow-Up By: 04/06/19 Additional Comments F/U for Diet education
[2019-04-07] MEDS: HumaLOG SUB-Q SCH ×2 (08:30→11:43)
[2019-04-07] MEDS: VITAMIN E CAP PO SCH (09:37)
[2019-04-07] MEDS: ZOLOFT PO SCH (09:38)
[2019-04-07] MEDS: NAMENDA PO SCH (09:38)
[2019-04-07] MEDS: HABITROL TD SCH (09:38)
[2019-04-07] MEDS: PEPCID PO SCH (09:39)
[2019-04-07] MEDS: BABY ASPIRIN PO SCH (09:39)
[2019-04-07] MEDS: ELIQUIS PO SCH (09:39)
[2019-04-07] MEDS: LOPRESSOR PO SCH (09:40)
[2019-04-07] MEDS: SODIUM CHLORIDE FLUSH SYRINGE 10 ML IV SCH (11:44)
--- NOTE | 2019-04-07 13:11 | Discharge Summary ---
Providers - Providers Date of Admission: 04/04/19 12:24 Attending physician: LISETH DOS SANTOS MD 04/04/19 10:10 Consult to Physician [CONS] Routine Comment: Consulting Provider: SONAL BISWAS Physician Instructions: Reason For Exam: B/L DVT 04/04/19 10:42 Consult to Physician [CONS] Routine Comment: Consulting Provider: LEW BE Physician Instructions: Reason For Exam: icu care 04/04/19 21:00 Consult to Dietitian/Nutrition [CONS] Routine Physician Instructions: Reason For Exam: Reason for Consult: Diet education 04/06/19 13:42 Physical Therapy Evaluation and Treat [CONS] Routine Comment: Reason For Exam: LLE DVT, need to ambulate 04/06/19 13:44 Consult to Case Management [CONS] Routine Services Needed at Discharge: Other Notified:: yes Was contact made?: Yes If yes, spoke with:: Rina Time called:: 08:42 Comment:: make appt with ROSALIND ([phone]) with Dr. Gibbs in 2 weeks [facility] Condition: Serious Hospital course: 79 year old man with kidney stones who was planned for a urological procedure who was then found to have extensive left lower extremity DVT. The patient's procedure was aborted and then he was admitted to the hospital. Extensive left lower extremity DVT Placement of thrombolytic catheter was done on IVC filter was placed, vascular surgery input appreciated Continue Heparin drip, sp IVC filter, Needs lifelong anticoagulation Vascular dementia with acute metabolic encephalopathy Supportive care, Ativan as needed, sitter ordered in the room as patient was pulling his lines and was confused Diabetes SSI GERD pepcid CAD Continue cardiac medications Current everyday smoker Nicotine patch, smoking cessation counseling performed for 11 minutes Disposition: [id number]-06 HOME UNDER HOME [facility] Time spent for discharge: 33 mins Core Measure Documentation - Palliative Care Palliative Care/ Comfort Measures: Not Applicable - Core Measures Any of the following diagnoses?: DVT/PE - VTE Discharge Requirements Deep Vein Thrombosis/Pulmonary Embolism Present on Admission: Yes Has pt received <5 days of overlap therapy or INR<2.0: Yes Anticoagulant overlap therapy prescribed at discharge: No Contraindication No Overlap Therapy order at DC: Not Indicated Exam - Constitutional Vitals: Temp Pulse Resp BP Pulse Ox 98.2 F 87 15 135/72 100 04/07/19 08:00 04/07/19 12:00 04/07/19 12:00 04/07/19 12:00 04/07/19 12:00 General appearance: Present: no acute distress, well-nourished - EENT Eyes: Present: PERRL ENT: hearing intact, clear oral mucosa - Neck Neck: Present: supple, normal ROM - Respiratory Respiratory effort: normal Respiratory: bilateral: CTA - Cardiovascular Heart Sounds: Present: S1 & S2. Absent: rub, click - Extremities Extremities: pulses symmetrical Extremity abnormal: edema (lle , improved) Peripheral Pulses: within normal limits - Abdominal General gastrointestinal: Present: soft, non-tender, non-distended, normal bowel sounds Male genitourinary: Present: normal - Integumentary Integumentary: Present: clear, warm, dry - Musculoskeletal Musculoskeletal: gait normal, strength equal bilaterally - Psychiatric Psychiatric: appropriate mood/affect, intact judgment & insight - Neurologic Neurologic: CNII-XII intact, moves all extremities Plan Follow up with: SHILOH MAGALLANES MD [Primary Care Provider] - 3-5 Days Prescriptions: Apixaban [Eliquis] 5 mg PO BID 30 Days tablet Nicotine [Habitrol] 14 mg TD QDAY #30 patch oxyCODONE /ACETAMINOPHEN [Percocet 5/325 mg] 1 tab PO Q6H PRN #20 tablet PRN Reason: Pain, Moderate (4-6)
--- NOTE | 2019-04-07 13:41 | Progress Note ---
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 Thrombolysis complicated by low fibrinogen requiring replacement with cryoprecipitate. CT head no head bleed. CTA performed by pulmonology. Minimal PE. Reviewed imaging. Asymptomatic. Mental status at baseline. Doing better. Legs are asymptomatic. Nurse will obtain ARELIS hose. Ambulate PRN. Anticoagulation for life. 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 He was a company tanker truck driver. Given multiple DVT in the past, will need to be anticoagulated for life given at least 2 DVTs. Subjective Date of service: 04/07/19 Principal diagnosis: Acute VTE; CAD; Tobacco Use Disorder Interval history: Doing well. No leg pain. Left leg feels good. No hematoma. swelling improved. Has skin tears on right neck from forcible removing right neck bandaged I placed yesterday in an episode of confusion. Ambulated well yesterday. Objective - Constitutional Vitals: Vital Signs - 12hr 04/07/19 04/07/19 04/07/19 02:01 02:10 03:00 Temperature Pulse Rate 95 H 89 100 H Pulse Rate [ From Monitor] Respiratory 16 16 Rate Blood Pressure 182/98 172/91 155/83 O2 Sat by Pulse 97 Oximetry 04/07/19 04/07/19 04/07/19 04:00 04:01 05:00 Temperature 98.1 F Pulse Rate 94 H 90 Pulse Rate [ 90 From Monitor] Respiratory 15 15 Rate Blood Pressure 148/73 139/74 O2 Sat by Pulse 84 100 Oximetry 04/07/19 04/07/19 04/07/19 06:00 07:01 08:00 Temperature 98.2 F Pulse Rate 81 98 H 85 Pulse Rate [ 85 From Monitor] Respiratory 22 18 22 Rate Blood Pressure 164/78 136/84 151/88 O2 Sat by Pulse 97 99 100 Oximetry 04/07/19 04/07/19 04/07/19 09:00 09:40 10:00 Temperature Pulse Rate 88 88 83 Pulse Rate [ From Monitor] Respiratory 19 20 Rate Blood Pressure 130/85 120/84 139/81 O2 Sat by Pulse 98 99 Oximetry 04/07/19 04/07/19 04/07/19 11:00 11:41 12:00 Temperature Pulse Rate 83 87 Pulse Rate [ 87 From Monitor] Respiratory 26 H 15 15 Rate Blood Pressure 141/86 135/72 O2 Sat by Pulse 100 Oximetry General appearance: Present: no acute distress - EENT Eyes: EOM intact, irregular pupil - Neck Neck: other (bruise right neck, skin tears right neck) - Respiratory Respiratory effort: normal Extremities: pulses intact (palpable left pedal pulses), normal temperature, no rmal color Extremity abnormal: edema (1+ LLE), pulses diminished (RLE nonpalpable pedal pulses) - Gastrointestinal General gastrointestinal: Present: soft - Psychiatric Psychiatric: cooperative - Labs CBC & Chem 7: 04/07/19 05:38 04/07/19 05:38 Labs: Abnormal lab results 04/06/19 04/06/19 04/07/19 Range/Units 16:23 21:17 05:38 [place] % (Auto) 7.8 H (0.0-7.3) % Seg Neutrophils % 73.3 H (40.0-70.0) % BUN (9-20) mg/dL Creatinine (0.8-1.5) mg/dL Glucose (75-100) mg/dL POC Glucose 180 H 134 H (70-105) 04/07/19 04/07/19 04/07/19 Range/Units 05:38 08:34 11:25 [place] % (Auto) (0.0-7.3) % Seg Neutrophils % (40.0-70.0) % BUN 8 L (9-20) mg/dL Creatinine 0.6 L (0.8-1.5) mg/dL Glucose 165 H (75-100) mg/dL POC Glucose 172 H 213 H (70-105) Medications & Allergies - Medications Allergies/Adverse Reactions: Allergies No Known Allergies Allergy (Verified 03/11/19 17:33) Home Medications: Home Medications Medication Instructions Recorded Confirmed Last Taken Type Alpha Lipoic Acid 200 mg PO DAILY 03/11/19 04/05/19 04/03/19 09:00 History Aspirin 81 mg PO DAILY 03/11/19 04/05/19 04/03/19 History AtorvaSTATin [Lipitor] 20 mg PO QHS 03/11/19 04/05/19 04/03/19 History Dutasteride [Avodart] 0.5 mg PO DAILY 03/11/19 04/05/19 04/03/19 09:00 History Ginkgo Biloba 60 mg PO BID 03/11/19 04/05/19 04/03/19 History Meclizine 1 tab PO PRN 03/11/19 04/05/19 04/03/19 History Memantine [Namenda] 10 mg PO BID 03/11/19 04/05/19 04/03/19 History Metoprolol Tartrate 12.5 mg PO BID 03/11/19 04/05/19 04/03/19 18:00 History Pepcid 10 mg PO BID 03/11/19 04/05/19 04/03/19 18:00 History Vitamin E 400 units PO DAILY 03/11/19 04/05/19 04/03/19 History Zoloft 100 mg PO DAILY 03/11/19 04/05/19 04/03/19 History metFORMIN 500 mg PO BID 03/11/19 04/05/19 04/03/19 18:00 History Apixaban [Eliquis] 5 mg PO BID 30 Days tablet 04/07/19 Unknown Rx Nicotine [Habitrol] 14 mg TD QDAY #30 patch 04/07/19 Unknown Rx oxyCODONE /ACETAMINOPHEN [Percocet 1 tab PO Q6H PRN #20 tablet 04/07/19 Unknown Rx 5/325 mg] Active Medications: Generic Name Dose Route Start Last Admin Trade Name Freq PRN Reason Stop Dose Admin Acetaminophen 650 mg 04/04/19 10:42 04/05/19 22:14 Tylenol PO 650 mg Q4H PRN Administration Pain MILD(1-3)/Fever >100.5/FERRO Albuterol 2.5 mg 04/06/19 15:28 Proventil IH Q4HRT PRN Shortness Of Breath Apixaban 10 mg 04/05/19 16:00 04/07/19 09:39 Eliquis PO 04/11/19 22:01 10 mg Q12HR KAMRON Administration Protocol Apixaban 5 mg 04/12/19 10:00 Eliquis PO Q12HR KAMRON Protocol Aspirin 81 mg 04/05/19 10:00 04/07/19 09:39 Baby Aspirin PO 81 mg QDAY KAMRON Administration Atorvastatin Calcium 20 mg 04/04/19 22:00 04/06/19 21:01 Lipitor PO 20 mg QHS KAMRON Administration Dextrose 50 ml 04/04/19 20:59 D50w (25gm) Syringe IV PRN PRN Hypoglycemia Famotidine 10 mg 04/04/19 22:00 04/07/19 09:39 Pepcid PO 10 mg BID KAMRON Administration Hydralazine HCl 10 mg 04/04/19 10:45 04/07/19 02:10 Apresoline IV 10 mg Q4H PRN Administration BP >160/100 Insulin Human Lispro 0 unit 04/04/19 22:00 04/07/19 11:43 Humalog SUB-Q 2 unit ACHS KAMRON Administration Protocol Lorazepam 1 mg 04/04/19 20:59 04/06/19 21:03 Ativan IV 1 mg Q4H PRN Administration Agitation Meclizine HCl 12.5 mg 04/04/19 15:06 Antivert PO Q12H PRN Vertigo Memantine 10 mg 04/04/19 22:00 04/07/19 09:38 Namenda PO 10 mg BID KAMRON Administration Metformin HCl 500 mg 04/07/19 08:00 04/07/19 09:00 Glucophage PO 500 mg BIDDIAB KAMRON Administration Metoprolol Tartrate 12.5 mg 04/04/19 22:00 04/07/19 09:40 Lopressor PO 12.5 mg BID KAMRON Administration Miscellaneous Medication 0.5 mg 04/05/19 10:00 Dutasteride [Avodart] PO DAILY [facility] Morphine Sulfate 2 mg 04/04/19 10:42 04/05/19 10:30 Morphine IV 2 mg Q4H PRN Administration Pain, Moderate (4-6) Nicotine 14 mg 04/04/19 21:00 04/07/19 09:38 Habitrol TD 14 mg QDAY KAMRON Administration Ondansetron HCl 4 mg 04/04/19 10:42 Zofran IV Q8H PRN Nausea And Vomiting Oxycodone/Acetaminophen 1 tab 04/04/19 10:42 04/07/19 11:41 Percocet 5/325 PO 1 tab Q6H PRN Administration Pain, Moderate (4-6) Sertraline HCl 100 mg 04/05/19 10:00 04/07/19 09:38 Zoloft PO 100 mg DAILY KAMRON Administration Sodium Chloride 10 ml 04/04/19 22:00 04/07/19 11:44 Sodium Chloride Flush Syringe 10 Ml IV 10 ml BID KAMRON Administration Sodium Chloride 10 ml 04/04/19 10:42 Sodium Chloride Flush Syringe 10 Ml IV PRN PRN LINE FLUSH Vitamin E 400 unit 04/05/19 10:00 04/07/19 09:37 Vitamin E Cap PO 400 unit QDAY KAMRON Administration
[2019-04-07 13:53] VITALS: BP 102/65
[2019-04-12] MEDS ORDERED: ELIQUIS PO SCH (10:00)
== END 2019-04-07 16:15 | disposition home health service (06) | DRG 270 ==
LOC: ED 06:56 → CATH 11:48 → CC1 12:24 → IMCU 04-05 13:41 → 2B-ACE 04-07 12:27
PROVIDERS: ADMIT Internal Medicine; ATTEND Internal Medicine
PROC: 06H03DZ Insertion of Intraluminal Device into Inferior Vena Cava, Percutaneous Approach (ICD-10-PCS; principal; 2019-04-04)
PROC: 06HN33Z Insertion of Infusion Device into Left Femoral Vein, Percutaneous Approach (ICD-10-PCS; 2019-04-04)
PROC: B51C1ZA Fluoroscopy of Left Lower Extremity Veins using Low Osmolar Contrast, Guidance (ICD-10-PCS; 2019-04-04)
PROC: B54CZZA Ultrasonography of Left Lower Extremity Veins, Guidance (ICD-10-PCS; 2019-04-04)
PROC: 06HD33Z Insertion of Infusion Device into Left Common Iliac Vein, Percutaneous Approach (ICD-10-PCS; 2019-04-04)
PROC: B51G1ZA Fluoroscopy of Left Pelvic (Iliac) Veins using Low Osmolar Contrast, Guidance (ICD-10-PCS; 2019-04-04)
PROC: 3E04317 Introduction of Other Thrombolytic into Central Vein, Percutaneous Approach (ICD-10-PCS; 2019-04-04)
PROC: B51H1ZZ Fluoroscopy of Bilateral Pelvic (Iliac) Veins using Low Osmolar Contrast (ICD-10-PCS; 2019-04-04)
PROC: 04CY3ZZ Extirpation of Matter from Lower Artery, Percutaneous Approach (ICD-10-PCS; 2019-04-05)
PROC: 06CN3ZZ Extirpation of Matter from Left Femoral Vein, Percutaneous Approach (ICD-10-PCS; 2019-04-05)
PROC: 06CD3ZZ Extirpation of Matter from Left Common Iliac Vein, Percutaneous Approach (ICD-10-PCS; 2019-04-05)
PROC: 06CG3ZZ Extirpation of Matter from Left External Iliac Vein, Percutaneous Approach (ICD-10-PCS; 2019-04-05)
PROC: 067N3ZZ Dilation of Left Femoral Vein, Percutaneous Approach (ICD-10-PCS; 2019-04-05)
PROC: 067D3ZZ Dilation of Left Common Iliac Vein, Percutaneous Approach (ICD-10-PCS; 2019-04-05)
PROC: 067G3ZZ Dilation of Left External Iliac Vein, Percutaneous Approach (ICD-10-PCS; 2019-04-05)
PROC: 067N3ZZ Dilation of Left Femoral Vein, Percutaneous Approach (ICD-10-PCS; 2019-04-05)
PROC: 067G3ZZ Dilation of Left External Iliac Vein, Percutaneous Approach (ICD-10-PCS; 2019-04-05)
PROC: B54CZZ3 Ultrasonography of Left Lower Extremity Veins, Intravascular (ICD-10-PCS; 2019-04-05)
PROC: 30233M1 Transfusion of Nonautologous Plasma Cryoprecipitate into Peripheral Vein, Percutaneous Approach (ICD-10-PCS; 2019-04-05)
PROC: B5191ZZ Fluoroscopy of Inferior Vena Cava using Low Osmolar Contrast (ICD-10-PCS; 2019-04-05)
DX: I82.413 Acute embolism and thrombosis of femoral vein, bilateral (principal); G93.41 Metabolic encephalopathy; J96.01 Acute respiratory failure with hypoxia; I82.432 Acute embolism and thrombosis of left popliteal vein; I82.422 Acute embolism and thrombosis of left iliac vein; I82.442 Acute embolism and thrombosis of left tibial vein; F01.50 Vascular dementia, unspecified severity, without behavioral disturbance, psychotic disturbance, mood disturbance, and anxiety; E11.9 Type 2 diabetes mellitus without complications; K21.9 Gastro-esophageal reflux disease without esophagitis; I25.10 Atherosclerotic heart disease of native coronary artery without angina pectoris; I25.2 Old myocardial infarction; I10 Essential (primary) hypertension; N20.0 Calculus of kidney; G43.909 Migraine, unspecified, not intractable, without status migrainosus; F17.210 Nicotine dependence, cigarettes, uncomplicated; Z79.82 Long term (current) use of aspirin; Z79.84 Long term (current) use of oral hypoglycemic drugs; Z95.1 Presence of aortocoronary bypass graft
CPT/HCPCS: 36415; 37187; 37191; 37212; 37214; 37248; 37249; 37252; 37253; 70450; 71275; 80048; 82962; 85014; 85018; 85025; 85384; 85520; 85610; 85730; 86850; 86900; 86901; 86965; 93925; 93970; 94640; 94760; 99406; G0378; A9270-GY; C1725; C1753; C1757; C1769; C1880; C1887; C1894; J0360; J0690; J1170; J1644; J1815; J2060; J2250; J2270; J2704; J2997; J3010; J7030; J7040; P9012; Q9967